=== PATIENT | male | born 1955 | race African-American/Black ===

== ENCOUNTER 2021-12-31 22:16 | Emergency (ER) | payer OTHER ==
[2021-12-31 22:23] VITALS: BP 110/66; PULSE 82; TEMP 98.3; BMI 18.3
== END 2022-01-01 04:44 | disposition home or self-care (01) ==
LOC: JER 22:16
DX: F10.129 Alcohol abuse with intoxication, unspecified (principal)
CPT/HCPCS: 70450-TC; 72125-TC; 99284-25

== ENCOUNTER 2022-01-01 06:54 | Emergency (ER) | payer OTHER ==
[2022-01-01 09:09] LABS: BASO % 0.9 % (0-2.0); EOS % 0.7 % (0-4.5); HEMATOCRIT 39.6 % (35.4-49); HEMOGLOBIN 13.8 GM/dL (11.7-16.9); LYMPH % 23.4 % (8-40); MCH 32.9 pg (25.7-33.7); MCHC 34.8 g/dl (32.0-35.9); MEAN CELL VOLUME 94.7 fl (80-96); MEAN PLT VOLUME 7.2 fl (7.5-11.1); PLATELET COUNT 387 10^3/uL (134-434); RBC 4.18 M/mm3 (4.00-5.60); RDW 13.3 % (11.9-15.9); WHITE BLOOD COUNT 6.5 K/mm3 (4.0-10.0)
[2022-01-01 09:32] LABS: ALBUMIN 3.8 g/dl (3.4-5.0); BLOOD UREA NITROGEN 9.2 mg/dL (7-18); MAGNESIUM 2.3 mg/dL (1.8-2.4)
[2022-01-01 09:35] LABS: CREATININE 0.9 mg/dL (0.55-1.3)
[2022-01-01 09:37] LABS: BILIRUBIN,TOTAL 0.6 mg/dL (0.2-1); TOT PROT 7.1 g/dl (6.4-8.2)
[2022-01-01 10:24] VITALS: BP 155/81; PULSE 74; TEMP 97.5; BMI 17.6
[2022-01-01] MEDS ORDERED: LOSARTAN POTASSIUM 50 MG TABLET PO ONE (13:11)
[2022-01-01] MEDS ORDERED: amLODIPine BESYLATE 10 MG TABLET (FP) PO ONE (13:11)
[2022-01-01] MEDS ORDERED: clonazePAM 2 MG TABLET PO ONE (13:12)
[2022-01-01] MEDS ORDERED: LOSARTAN POTASSIUM 50 MG TABLET ONE (13:16)
[2022-01-01] MEDS ORDERED: clonazePAM 2 MG TABLET ONE (13:16)
[2022-01-01] MEDS ORDERED: amLODIPine BESYLATE 10 MG TABLET (FP) ONE (13:16)
== END 2022-01-01 14:00 | disposition home or self-care (01) ==
LOC: JER 06:54
DX: R07.9 Chest pain, unspecified (principal)
CPT/HCPCS: 71046-TC-FY; 80053; 83735; 84443; 84484; 85025; 93005; 93010; 99285-25; C9803-CS; U0003; U0005

== ENCOUNTER 2022-01-06 01:36 | Emergency (ER) | payer OTHER ==
[2022-01-06 01:59] VITALS: BP 145/86; PULSE 95; RESP 18; TEMP 98.1; BMI 47.2
== END 2022-01-06 06:40 | disposition home or self-care (01) ==
LOC: JER 01:36
DX: Z76.0 Encounter for issue of repeat prescription (principal)
CPT/HCPCS: 99283-25

== ENCOUNTER 2022-01-07 21:33 | Emergency (ER) | payer OTHER ==
[2022-01-07 21:46] VITALS: BP 133/70; PULSE 90; RESP 20; TEMP 98.3; BMI 18.1
== END 2022-01-07 23:29 | disposition home or self-care (01) ==
LOC: JER 21:33
DX: Z00.00 Encounter for general adult medical examination without abnormal findings (principal)
CPT/HCPCS: 93005; 93010; 99283-25

== ENCOUNTER 2022-03-24 11:57 | Emergency (ER) | payer OTHER ==
[2022-03-24 12:13] VITALS: BP 160/70; PULSE 110; RESP 18; TEMP 97.1; BMI 18.1
[2022-03-24] MEDS ORDERED: DIPHTH,PERTUSS(ACELL),TET 0.5 ML DISP.SYRIN IM ONE ×2 (12:43→14:07)
[2022-03-24] MEDS ORDERED: ACETAMINOPHEN 500 MG TABLET (FP) PO ONE (12:43)
[2022-03-24] MEDS ORDERED: ACETAMINOPHEN 500 MG TABLET (FP) ONE (14:07)
== END 2022-03-24 17:00 | disposition home or self-care (01) ==
LOC: JER 11:57
PROC: 0HQ1XZZ Repair Face Skin, External Approach (ICD-10-PCS; principal; 2022-03-24)
PROC: 3E0234Z Introduction of Serum, Toxoid and Vaccine into Muscle, Percutaneous Approach (ICD-10-PCS; 2022-03-24)
DX: S06.0X9A Concussion with loss of consciousness of unspecified duration, initial encounter (principal); S01.411A Laceration without foreign body of right cheek and temporomandibular area, initial encounter; R51.9 Headache, unspecified; Y04.0XXA Assault by unarmed brawl or fight, initial encounter
CPT/HCPCS: 12002-25; 70450-TC; 70486-TC; 72125-TC; 90471; 90715; 99285-25

== ENCOUNTER 2022-04-04 22:37 | Inpatient (IN) | payer OTHER ==
[2022-04-04 23:35] LABS: BASO % 0.9 % (0-2.0); EOS % 1.9 % (0-4.5); HEMATOCRIT 37.5 % (35.4-49); HEMOGLOBIN 12.8 GM/dL (11.7-16.9); LYMPH % 24.3 % (8-40); MCH 32.8 pg (25.7-33.7); MCHC 34.1 g/dl (32.0-35.9); MEAN CELL VOLUME 96.4 fl (80-96); MEAN PLT VOLUME 6.6 fl (7.5-11.1); MONO % 5.9 % (3.8-10.2); PLATELET COUNT 371 10^3/uL (134-434); RBC 3.89 M/mm3 (4.00-5.60); RDW 13.6 % (11.9-15.9); WHITE BLOOD COUNT 7.2 K/mm3 (4.0-10.0)
[2022-04-04] MEDS ORDERED: CLOPIDOGREL BISULFATE 300 MG TABLET PO ONE (23:37)
[2022-04-04] MEDS ORDERED: CLOPIDOGREL BISULFATE 300 MG TABLET ONE (23:43)
[2022-04-04 23:44] LABS: INR 0.97 (0.83-1.09); PROTHROMBIN TIME (PATIENT) 11.1 SEC (9.7-13.0)
[2022-04-04] MEDS ORDERED: CLOPIDOGREL BISULFATE 75 MG TABLET (FP) PO ONE (23:44)
[2022-04-04 23:47] LABS: ACTIVATED PTT 27.5 SECONDS (25.2-36.5)
[2022-04-04] MEDS ORDERED: CLOPIDOGREL BISULFATE 75 MG TABLET (FP) ONE (23:47)
[2022-04-04 23:54] LABS: CALCIUM 9.1 mg/dL (8.5-10.1)
[2022-04-04 23:56] LABS: BLOOD UREA NITROGEN 11.9 mg/dL (7-18)
[2022-04-04 23:57] LABS: ALBUMIN 3.9 g/dl (3.4-5.0)
[2022-04-04 23:59] LABS: TOT PROT 7.2 g/dl (6.4-8.2)
[2022-04-05 00:01] LABS: BILIRUBIN,TOTAL 0.2 mg/dL (0.2-1)
[2022-04-05 07:48] LABS: EOS % 4.2 % (0-4.5); HEMATOCRIT 38.1 % (35.4-49); HEMOGLOBIN 12.6 GM/dL (11.7-16.9); MCH 32.1 pg (25.7-33.7); MCHC 33.1 g/dl (32.0-35.9); MEAN CELL VOLUME 96.9 fl (80-96); MEAN PLT VOLUME 7.4 fl (7.5-11.1); MONO % 9.4 % (3.8-10.2); NEUT % 53.4 % (42.8-82.8); PLATELET COUNT 352 10^3/uL (134-434); RBC 3.93 M/mm3 (4.00-5.60); RDW 13.7 % (11.9-15.9); WHITE BLOOD COUNT 7.4 K/mm3 (4.0-10.0)
[2022-04-05 07:57] LABS: ALBUMIN 3.4 g/dl (3.4-5.0); BLOOD UREA NITROGEN 11.6 mg/dL (7-18); CALCIUM 8.9 mg/dL (8.5-10.1)
[2022-04-05 08:01] LABS: CREATININE 0.9 mg/dL (0.55-1.3)
[2022-04-05 08:03] LABS: BILIRUBIN,TOTAL 0.4 mg/dL (0.2-1); TOT PROT 6.4 g/dl (6.4-8.2)
[2022-04-05] MEDS ORDERED: CLOPIDOGREL BISULFATE 75 MG TABLET (FP) ONE (09:46)
[2022-04-05] MEDS ORDERED: amLODIPine BESYLATE 10 MG TABLET (FP) ONE (09:46)
[2022-04-05] MEDS ORDERED: LOSARTAN POTASSIUM 50 MG TABLET ONE (09:46)
[2022-04-05] MEDS ORDERED: ENOXAPARIN NA (PORCINE) 30 MG/0.3 ML DISP.SYRIN SQ ONE (09:47)
[2022-04-05] MEDS: ENOXAPARIN NA (PORCINE) 30 MG/0.3 ML DISP.SYRIN SQ SCH (10:02)
[2022-04-05] MEDS: LOSARTAN POTASSIUM 50 MG TABLET PO SCH (10:02)
[2022-04-05] MEDS: CLOPIDOGREL BISULFATE 75 MG TABLET (FP) PO SCH (10:03)
[2022-04-05] MEDS: amLODIPine BESYLATE 10 MG TABLET (FP) PO SCH (10:03)
[2022-04-05] MEDS: ROSUVASTATIN CA 20 MG TABLET PO SCH (21:51)
[2022-04-05] MEDS ORDERED: ROSUVASTATIN CA 40 MG TABLET PO SCH (22:00)
[2022-04-06 03:29] LABS: URINE BARBITURATES NEGATIVE (NEGATIVE)
[2022-04-06 03:30] LABS: METHADONE, UR NEGATIVE (NEGATIVE); PHENCYCLIDINE,URINE NEGATIVE (NEGATIVE); URINE BENZODIAZEPINES NEGATIVE (NEGATIVE)
[2022-04-06 04:02] LABS: COCAINE, UR POSITIVE (NEGATIVE); OPIATES, URI POSITIVE (NEGATIVE); URINE AMPHETAMINES NEGATIVE (NEGATIVE)
[2022-04-06 08:34] LABS: BASO % 0.7 % (0-2.0); EOS % 5.2 % (0-4.5); HEMATOCRIT 40.2 % (35.4-49); HEMOGLOBIN 13.6 GM/dL (11.7-16.9); LYMPH % 20.2 % (8-40); MCH 32.4 pg (25.7-33.7); MCHC 33.8 g/dl (32.0-35.9); MEAN CELL VOLUME 96.1 fl (80-96); MEAN PLT VOLUME 7.2 fl (7.5-11.1); MONO % 10.8 % (3.8-10.2); NEUT % 63.1 % (42.8-82.8); PLATELET COUNT 367 10^3/uL (134-434); RBC 4.19 M/mm3 (4.00-5.60); RDW 13.6 % (11.9-15.9); WHITE BLOOD COUNT 6.4 K/mm3 (4.0-10.0)
[2022-04-06 08:56] LABS: ALBUMIN 3.6 g/dl (3.4-5.0); BLOOD UREA NITROGEN 10.8 mg/dL (7-18); CALCIUM 9.1 mg/dL (8.5-10.1)
[2022-04-06 09:01] LABS: BILIRUBIN,TOTAL 0.5 mg/dL (0.2-1); TOT PROT 6.9 g/dl (6.4-8.2)
[2022-04-06] MEDS: LOSARTAN POTASSIUM 50 MG TABLET PO SCH (09:20)
[2022-04-06] MEDS: CLOPIDOGREL BISULFATE 75 MG TABLET (FP) PO SCH (09:20)
[2022-04-06] MEDS: ENOXAPARIN NA (PORCINE) 30 MG/0.3 ML DISP.SYRIN SQ SCH (09:20)
[2022-04-06] MEDS: amLODIPine BESYLATE 10 MG TABLET (FP) PO SCH (09:21)
[2022-04-06] MEDS: POLYETHYLENE GLYCOL (HEALTHYLAX) 3350 17 GM PACKET PO SCH ×2 (13:49→21:23)
[2022-04-06] MEDS: DOCUSATE SODIUM 100 MG CAPSULE (FP) PO SCH ×2 (15:40→21:22)
[2022-04-06] MEDS ORDERED: QUEtiapine FUMARATE 100 MG TABLET (FP) PO ONE (20:16)
[2022-04-06] MEDS ORDERED: clonazePAM 0.5 MG TABLET PO ONE (20:16)
[2022-04-06] MEDS: ROSUVASTATIN CA 20 MG TABLET PO SCH (21:22)
[2022-04-07] MEDS: DOCUSATE SODIUM 100 MG CAPSULE (FP) PO SCH ×3 (05:14→22:45)
[2022-04-07 08:36] LABS: BASO % 0.6 % (0-2.0); EOS % 8.1 % (0-4.5); HEMATOCRIT 41.5 % (35.4-49); HEMOGLOBIN 14.2 GM/dL (11.7-16.9); LYMPH % 25.6 % (8-40); MCH 32.8 pg (25.7-33.7); MCHC 34.1 g/dl (32.0-35.9); MEAN CELL VOLUME 96.2 fl (80-96); MEAN PLT VOLUME 7.3 fl (7.5-11.1); MONO % 11.3 % (3.8-10.2); NEUT % 54.4 % (42.8-82.8); PLATELET COUNT 375 10^3/uL (134-434); RBC 4.31 M/mm3 (4.00-5.60); RDW 13.4 % (11.9-15.9); WHITE BLOOD COUNT 7.1 K/mm3 (4.0-10.0)
[2022-04-07 08:56] LABS: CALCIUM 9.1 mg/dL (8.5-10.1)
[2022-04-07 08:57] LABS: ALBUMIN 3.5 g/dl (3.4-5.0); BLOOD UREA NITROGEN 10.2 mg/dL (7-18)
[2022-04-07 08:59] LABS: CREATININE 1.1 mg/dL (0.55-1.3)
[2022-04-07 09:01] LABS: BILIRUBIN,TOTAL 0.4 mg/dL (0.2-1); TOT PROT 6.8 g/dl (6.4-8.2)
[2022-04-07] MEDS ORDERED: REGADENOSON 0.4 MG/5 ML PRE-FILLED SYRINGE IVPUSH ONE ×2 (09:54→10:30)
[2022-04-07] MEDS: LOSARTAN POTASSIUM 50 MG TABLET PO SCH (13:45)
[2022-04-07] MEDS: CLOPIDOGREL BISULFATE 75 MG TABLET (FP) PO SCH (13:46)
[2022-04-07] MEDS: amLODIPine BESYLATE 10 MG TABLET (FP) PO SCH (13:46)
[2022-04-07] MEDS: POLYETHYLENE GLYCOL (HEALTHYLAX) 3350 17 GM PACKET PO SCH ×2 (13:47→21:09)
[2022-04-07] MEDS: ENOXAPARIN NA (PORCINE) 30 MG/0.3 ML DISP.SYRIN SQ SCH (13:47)
[2022-04-07] MEDS ORDERED: ASPIRIN COATED 81 MG TABLET.EC PO SCH (16:30)
[2022-04-07] MEDS: LIDOCAINE 5% TOPICAL PATCH TP SCH (17:03)
[2022-04-07] MEDS: oxyCODONE HCL 5 MG TABLET PO PRN ×2 (17:08→22:53)
[2022-04-07] MEDS: ACETAMINOPHEN 325 MG TABLET (FP) PO PRN (17:11)
[2022-04-07] MEDS: ROSUVASTATIN CA 20 MG TABLET PO SCH (21:10)
[2022-04-07] MEDS ORDERED: QUEtiapine FUMARATE 100 MG TABLET (FP) PO ONE (22:38)
[2022-04-07] MEDS: LIDOCAINE PATCH REMOVAL MC SCH (22:57)
[2022-04-07 23:21] VITALS: BMI 18.9
[2022-04-08] MEDS: DOCUSATE SODIUM 100 MG CAPSULE (FP) PO SCH ×3 (06:12→21:12)
[2022-04-08] MEDS: oxyCODONE HCL 5 MG TABLET PO PRN ×3 (06:23→18:37)
[2022-04-08] MEDS: ACETAMINOPHEN 325 MG TABLET (FP) PO PRN ×3 (06:24→18:38)
[2022-04-08] MEDS ORDERED: NITROGLYCERIN SUBLINGUAL 1/150 0.4 MG TAB SL ONE (07:14)
[2022-04-08] MEDS ORDERED: NITROGLYCERIN SUBLINGUAL 1/150 0.4 MG TAB ONE (07:17)
[2022-04-08] MEDS: ENOXAPARIN NA (PORCINE) 30 MG/0.3 ML DISP.SYRIN SQ SCH (09:43)
[2022-04-08] MEDS: LOSARTAN POTASSIUM 50 MG TABLET PO SCH (09:43)
[2022-04-08] MEDS: amLODIPine BESYLATE 10 MG TABLET (FP) PO SCH (09:43)
[2022-04-08] MEDS: POLYETHYLENE GLYCOL (HEALTHYLAX) 3350 17 GM PACKET PO SCH ×2 (09:44→21:12)
[2022-04-08] MEDS: LIDOCAINE 5% TOPICAL PATCH TP SCH (09:45)
[2022-04-08] MEDS ORDERED: TICAGRELOR 60 MG TABLET PO SCH (10:00)
[2022-04-08] MEDS ORDERED: TICAGRELOR 90 MG TABLET PO SCH (10:00)
[2022-04-08] MEDS: QUEtiapine FUMARATE 100 MG TABLET (FP) PO SCH (21:12)
[2022-04-08] MEDS: ROSUVASTATIN CA 20 MG TABLET PO SCH (21:13)
[2022-04-08] MEDS: LIDOCAINE PATCH REMOVAL MC SCH (21:17)
[2022-04-08 21:43] LABS: N-TERMINAL BNP 67.4 pg/ml (5-125)
[2022-04-08 22:15] LABS: CALCIUM 9.5 mg/dL (8.5-10.1)
[2022-04-08 22:16] LABS: BLOOD UREA NITROGEN 23.7 mg/dL (7-18)
[2022-04-08 22:19] LABS: CREATININE 1.1 mg/dL (0.55-1.3)
[2022-04-08] MEDS: DEXTROSE 5%-0.45% SALINE 1,000 ML IV SCH (23:41)
[2022-04-09] MEDS: oxyCODONE HCL 5 MG TABLET PO PRN ×2 (03:49→20:00)
[2022-04-09] MEDS: ACETAMINOPHEN 325 MG TABLET (FP) PO PRN (03:50)
[2022-04-09] MEDS: DOCUSATE SODIUM 100 MG CAPSULE (FP) PO SCH ×3 (06:47→21:06)
[2022-04-09 09:31] VITALS: RESP 18
[2022-04-09] MEDS: LIDOCAINE 5% TOPICAL PATCH TP SCH (10:51)
[2022-04-09] MEDS: ENOXAPARIN NA (PORCINE) 30 MG/0.3 ML DISP.SYRIN SQ SCH (10:59)
[2022-04-09] MEDS: amLODIPine BESYLATE 10 MG TABLET (FP) PO SCH (11:00)
[2022-04-09] MEDS: CLOPIDOGREL BISULFATE 75 MG TABLET (FP) PO SCH (11:00)
[2022-04-09] MEDS: LOSARTAN POTASSIUM 50 MG TABLET PO SCH (11:00)
[2022-04-09] MEDS: POLYETHYLENE GLYCOL (HEALTHYLAX) 3350 17 GM PACKET PO SCH ×2 (11:00→21:06)
[2022-04-09] MEDS: clonazePAM 0.5 MG TABLET PO PRN (15:06)
[2022-04-09] MEDS: QUEtiapine FUMARATE 100 MG TABLET (FP) PO SCH (21:05)
[2022-04-09] MEDS: ROSUVASTATIN CA 20 MG TABLET PO SCH (21:05)
[2022-04-09] MEDS: LIDOCAINE PATCH REMOVAL MC SCH (21:09)
[2022-04-10] MEDS: oxyCODONE HCL 5 MG TABLET PO PRN ×2 (02:00→08:36)
[2022-04-10] MEDS: DEXTROSE 5%-0.45% SALINE 1,000 ML IV SCH (02:02)
[2022-04-10] MEDS: clonazePAM 0.5 MG TABLET PO PRN (02:06)
[2022-04-10] MEDS: ACETAMINOPHEN 325 MG TABLET (FP) PO PRN (05:50)
[2022-04-10] MEDS: DOCUSATE SODIUM 100 MG CAPSULE (FP) PO SCH (05:50)
[2022-04-10 09:02] VITALS: BP 125/89; PULSE 97; TEMP 97.9
[2022-04-10] MEDS: LOSARTAN POTASSIUM 50 MG TABLET PO SCH (10:40)
[2022-04-10] MEDS: ENOXAPARIN NA (PORCINE) 30 MG/0.3 ML DISP.SYRIN SQ SCH (10:40)
[2022-04-10] MEDS: amLODIPine BESYLATE 10 MG TABLET (FP) PO SCH (10:40)
[2022-04-10] MEDS: LIDOCAINE 5% TOPICAL PATCH TP SCH (10:40)
[2022-04-10] MEDS: CLOPIDOGREL BISULFATE 75 MG TABLET (FP) PO SCH (10:41)
[2022-04-10] MEDS: POLYETHYLENE GLYCOL (HEALTHYLAX) 3350 17 GM PACKET PO SCH (10:41)
== END 2022-04-10 13:58 | disposition home or self-care (01) | DRG 190 ==
LOC: JER 22:37 → JERBED 04-05 00:51 → J4S 04-05 18:32 → OBSVTOIN 04-08 09:55
PROVIDERS: ADMIT Internal Medicine; ATTEND Internal Medicine
DX: I21.4 Non-ST elevation (NSTEMI) myocardial infarction (principal); I10 Essential (primary) hypertension; G89.29 Other chronic pain; Z86.73 Personal history of transient ischemic attack (TIA), and cerebral infarction without residual deficits; R07.9 Chest pain, unspecified; M87.052 Idiopathic aseptic necrosis of left femur; F20.9 Schizophrenia, unspecified; F17.200 Nicotine dependence, unspecified, uncomplicated; M25.562 Pain in left knee; M25.561 Pain in right knee; E78.5 Hyperlipidemia, unspecified; F41.9 Anxiety disorder, unspecified; F32.A Depression, unspecified; M54.50 Low back pain, unspecified; M87.051 Idiopathic aseptic necrosis of right femur; F19.10 Other psychoactive substance abuse, uncomplicated
CPT/HCPCS: 0241U-QW; 36415; 71046-TC-FY; 71275-TC; 74160-TC; 74177-TC; 78452-TC; 80048; 80053; 80061; 80307; 82962; 83036; 83880; 84439; 84443; 84484; 85025; 85610; 85730; 86682; 93005; 93010; 93017; 93306-TC; 99285-25; A9502; G0378; J2785; Q9967

== ENCOUNTER 2022-05-11 18:49 | Emergency (ER) | payer OTHER ==
[2022-05-11 20:36] VITALS: BP 142/85; PULSE 83; RESP 18; TEMP 98.1; BMI 24.3
[2022-05-11] MEDS ORDERED: ACETAMINOPHEN 325 MG TABLET (FP) PO ONE (23:48)
[2022-05-12] MEDS ORDERED: LIDOCAINE 5% TOPICAL PATCH TP ONE (00:42)
[2022-05-12] MEDS ORDERED: LIDOCAINE 5% TOPICAL PATCH ONE (01:53)
[2022-05-12] MEDS ORDERED: LIDOCAINE PATCH REMOVAL MC SCH (22:00)
== END 2022-05-12 08:37 | disposition home or self-care (01) ==
LOC: JER 18:49 → JERFT 18:49
DX: M54.50 Low back pain, unspecified (principal)
CPT/HCPCS: 99283-25

== ENCOUNTER 2022-05-26 20:38 | Observation (INO) | payer OTHER ==
[2022-05-26 21:23] VITALS: BMI 18.8
[2022-05-27 00:34] LABS: HEMOGLOBIN 10.6 GM/dL (11.7-16.9); MCH 32.3 pg (25.7-33.7); MCHC 34.4 g/dl (32.0-35.9); MEAN CELL VOLUME 93.9 fl (80-96); MEAN PLT VOLUME 6.7 fl (7.5-11.1); PLATELET COUNT 380 10^3/uL (134-434); RDW 13.8 % (11.9-15.9); WHITE BLOOD COUNT 6.5 K/mm3 (4.0-10.0)
[2022-05-27 00:55] LABS: CALCIUM 9.1 mg/dL (8.5-10.1)
[2022-05-27 00:56] LABS: ALBUMIN 3.7 g/dl (3.4-5.0); BLOOD UREA NITROGEN 9.3 mg/dL (7-18); MAGNESIUM 1.9 mg/dL (1.8-2.4)
[2022-05-27 01:01] LABS: BILIRUBIN,TOTAL 0.2 mg/dL (0.2-1); TOT PROT 6.9 g/dl (6.4-8.2)
[2022-05-27 01:04] LABS: N-TERMINAL BNP 172.5 pg/ml (5-125)
[2022-05-27 01:25] LABS: INR 1.04 (0.83-1.09)
[2022-05-27 01:28] LABS: ACTIVATED PTT 26.7 SECONDS (25.2-36.5)
[2022-05-27] MEDS ORDERED: OSELTAMIVIR PHOSPHATE 75 MG CAPSULE PO SCH (03:07)
[2022-05-27] MEDS ORDERED: OSELTAMIVIR PHOSPHATE 30 MG CAPSULE PO SCH (04:00)
[2022-05-27 05:33] LABS: ANISOCYTOSIS 3+; MACROCYTOSIS 0; ROULEAU 1+
[2022-05-27] MEDS ORDERED: INSULIN SLIDING SCALE (NOVOLOG) 1 VIAL SQ SCH (07:00)
[2022-05-27 07:06] VITALS: BP 164/78; PULSE 79; RESP 20; TEMP 99.7
[2022-05-27] MEDS ORDERED: amLODIPine BESYLATE 10 MG TABLET (FP) ONE (09:20)
[2022-05-27] MEDS ORDERED: CLOPIDOGREL BISULFATE 75 MG TABLET (FP) ONE (09:21)
[2022-05-27] MEDS ORDERED: amLODIPine BESYLATE 10 MG TABLET (FP) PO SCH (10:00)
[2022-05-27] MEDS ORDERED: ENOXAPARIN NA (PORCINE) 40 MG/0.4 ML DISP.SYRIN SQ SCH (10:00)
[2022-05-27] MEDS ORDERED: CLOPIDOGREL BISULFATE 75 MG TABLET (FP) PO SCH (10:00)
== END 2022-05-27 12:11 | disposition left against medical advice (07) ==
LOC: JER 20:38 → JERBED 05-27 00:08
PROVIDERS: ADMIT Internal Medicine; ATTEND Internal Medicine
DX: J09.X2 Influenza due to identified novel influenza A virus with other respiratory manifestations (principal); E11.9 Type 2 diabetes mellitus without complications; F31.9 Bipolar disorder, unspecified; E78.5 Hyperlipidemia, unspecified; I11.9 Hypertensive heart disease without heart failure; G89.29 Other chronic pain; I25.10 Atherosclerotic heart disease of native coronary artery without angina pectoris; Z95.5 Presence of coronary angioplasty implant and graft; Z86.73 Personal history of transient ischemic attack (TIA), and cerebral infarction without residual deficits; Z29.8 Encounter for other specified prophylactic measures; Z88.8 Allergy status to other drugs, medicaments and biological substances
CPT/HCPCS: 0241U-QW; 36415; 71045-TC-FY; 80053; 83735; 83880; 84484; 85025; 85610; 85730; 93005; 93010; 99285-25; G0378

== ENCOUNTER 2022-08-02 00:57 | Emergency (ER) | payer OTHER ==
[2022-08-02 01:03] VITALS: RESP 18; BMI 18.8
[2022-08-02] MEDS ORDERED: diphenhydrAMINE HCL 25 MG CAPSULE (FP) PO ONE ×2 (01:28→01:53)
[2022-08-02] MEDS ORDERED: morphine CARPU-JECT 2 MG/1 ML DISP.SYRIN IVPUSH ONE (01:31)
[2022-08-02] MEDS ORDERED: morphine SULFATE 4 MG/ML VIAL ONE (01:53)
[2022-08-02 02:14] LABS: BASO % 0.7 % (0-2.0); HEMOGLOBIN 13.1 GM/dL (11.7-16.9); LYMPH % 36.8 % (8-40); MCH 32.3 pg (25.7-33.7); MCHC 34.5 g/dl (32.0-35.9); MEAN CELL VOLUME 93.7 fl (80-96); MEAN PLT VOLUME 7.1 fl (7.5-11.1); MONO % 11.1 % (3.8-10.2); NEUT % 45.4 % (42.8-82.8); PLATELET COUNT 328 10^3/uL (134-434); RBC 4.05 M/mm3 (4.00-5.60); RDW 13.7 % (11.9-15.9); WHITE BLOOD COUNT 7.1 K/mm3 (4.0-10.0)
[2022-08-02 02:20] LABS: INR 0.96 (0.83-1.09); PROTHROMBIN TIME (PATIENT) 11.1 SEC (9.7-13.0)
[2022-08-02 02:23] LABS: ACTIVATED PTT 30.4 SECONDS (25.2-36.5)
[2022-08-02 02:34] LABS: ALBUMIN 3.7 g/dl (3.4-5.0); CALCIUM 8.8 mg/dL (8.5-10.1)
[2022-08-02 02:37] LABS: CREATININE 1.2 mg/dL (0.55-1.3)
[2022-08-02 02:39] LABS: BILIRUBIN,TOTAL 0.2 mg/dL (0.2-1); TOT PROT 6.9 g/dl (6.4-8.2)
[2022-08-02 06:49] VITALS: BP 173/94; PULSE 75; TEMP 97.9
== END 2022-08-02 07:06 | disposition home or self-care (01) ==
LOC: JER 00:57
PROC: 3E033GC Introduction of Other Therapeutic Substance into Peripheral Vein, Percutaneous Approach (ICD-10-PCS; principal; 2022-08-02)
DX: R07.9 Chest pain, unspecified (principal); K46.9 Unspecified abdominal hernia without obstruction or gangrene
CPT/HCPCS: 0241U-QW; 36415; 71045-TC-FY; 80053; 83605; 84484; 85025; 85610; 85730; 86850; 86900; 86901; 93005; 93010; 99285-25

== ENCOUNTER 2022-08-11 19:34 | Observation (INO) | payer OTHER ==
[2022-08-11 23:48] LABS: BASO % 0.6 % (0-2.0); EOS % 4.3 % (0-4.5); HEMATOCRIT 36.9 % (35.4-49); HEMOGLOBIN 12.4 GM/dL (11.7-16.9); LYMPH % 20.5 % (8-40); MCH 31.1 pg (25.7-33.7); MCHC 33.6 g/dl (32.0-35.9); MEAN CELL VOLUME 92.7 fl (80-96); MONO % 8.3 % (3.8-10.2); NEUT % 66.3 % (42.8-82.8); PLATELET COUNT 350 10^3/uL (134-434); RBC 3.98 M/mm3 (4.00-5.60); RDW 13.7 % (11.9-15.9); WHITE BLOOD COUNT 9.6 K/mm3 (4.0-10.0)
[2022-08-11 23:52] LABS: INR 0.97 (0.83-1.09); PROTHROMBIN TIME (PATIENT) 11.2 SEC (9.7-13.0)
[2022-08-12 00:11] LABS: CALCIUM 9.1 mg/dL (8.5-10.1)
[2022-08-12 00:12] LABS: ALBUMIN 3.5 g/dl (3.4-5.0); BLOOD UREA NITROGEN 13.1 mg/dL (7-18)
[2022-08-12 00:15] LABS: CREATININE 1.2 mg/dL (0.55-1.3)
[2022-08-12 00:17] LABS: BILIRUBIN,TOTAL 0.4 mg/dL (0.2-1); TOT PROT 6.8 g/dl (6.4-8.2)
[2022-08-12] MEDS ORDERED: BACLOFEN 10 MG TABLET (FP) PO SCH (06:00)
[2022-08-12] MEDS ORDERED: LOSARTAN POTASSIUM 50 MG TABLET PO SCH (10:00)
[2022-08-12] MEDS ORDERED: CLOPIDOGREL BISULFATE 75 MG TABLET (FP) PO SCH (10:00)
[2022-08-12] MEDS ORDERED: ENOXAPARIN NA (PORCINE) 40 MG/0.4 ML DISP.SYRIN SQ SCH (10:00)
[2022-08-12] MEDS ORDERED: amLODIPine BESYLATE 10 MG TABLET (FP) PO SCH (10:00)
[2022-08-12] MEDS ORDERED: CLONAZEPAM PO SCH (10:00)
[2022-08-12] MEDS ORDERED: clonazePAM 2 MG TABLET PO SCH (10:00)
[2022-08-12] MEDS: INSULIN SLIDING SCALE (NOVOLOG) 1 VIAL SQ SCH ×2 (12:39→17:13)
[2022-08-12 14:19] LABS: BASO % 0.9 % (0-2.0); EOS % 6.8 % (0-4.5); HEMATOCRIT 38.1 % (35.4-49); HEMOGLOBIN 13.1 GM/dL (11.7-16.9); LYMPH % 28.8 % (8-40); MCH 32.1 pg (25.7-33.7); MCHC 34.3 g/dl (32.0-35.9); MEAN CELL VOLUME 93.8 fl (80-96); MEAN PLT VOLUME 7.3 fl (7.5-11.1); NEUT % 52.5 % (42.8-82.8); PLATELET COUNT 365 10^3/uL (134-434); RBC 4.06 M/mm3 (4.00-5.60); RDW 13.6 % (11.9-15.9)
[2022-08-12 14:47] VITALS: BMI 18.0
[2022-08-12 14:48] LABS: CALCIUM 9.2 mg/dL (8.5-10.1)
[2022-08-12 14:49] LABS: ALBUMIN 3.4 g/dl (3.4-5.0); BLOOD UREA NITROGEN 15.8 mg/dL (7-18); MAGNESIUM 2.1 mg/dL (1.8-2.4)
[2022-08-12 14:52] LABS: PHOSPHOROUS 3.6 mg/dL (2.5-4.9)
[2022-08-12 14:53] LABS: BILIRUBIN,TOTAL 0.3 mg/dL (0.2-1); TOT PROT 6.6 g/dl (6.4-8.2)
[2022-08-12 14:54] LABS: N-TERMINAL BNP 122.6 pg/ml (5-125)
[2022-08-12] MEDS ORDERED: diphenhydrAMINE HCL 25 MG CAPSULE (FP) PO ONE (15:47)
[2022-08-12] MEDS ORDERED: ATORVASTATIN CA 40 MG TABLET (FP) PO SCH (22:00)
[2022-08-12] MEDS ORDERED: LIDOCAINE PATCH REMOVAL MC SCH (22:00)
[2022-08-12] MEDS ORDERED: ATORVASTATIN CA 80 MG TABLET (FP) PO SCH (22:00)
[2022-08-12] MEDS ORDERED: CARVEDILOL 6.25 MG TABLET (FP) PO SCH (22:00)
[2022-08-12] MEDS ORDERED: QUEtiapine FUMARATE 100 MG TABLET (FP) PO SCH (22:00)
[2022-08-12] MEDS ORDERED: ACETAMINOPHEN 1000 MG/100 ML BAG IVPB PRN (23:24)
[2022-08-12] MEDS ORDERED: MELATONIN 1 MG TABLET PO PRN (23:30)
[2022-08-13 01:03] VITALS: RESP 20
[2022-08-13 06:32] VITALS: BP 139/73; PULSE 70; TEMP 98.7
[2022-08-13] MEDS ORDERED: ASPIRIN COATED 81 MG TABLET.EC PO SCH (10:00)
[2022-08-13] MEDS ORDERED: diphenhydrAMINE HCL 25 MG CAPSULE (FP) PO SCH (10:00)
[2022-08-13] MEDS ORDERED: LIDOCAINE 5% TOPICAL PATCH TP SCH (10:00)
== END 2022-08-13 08:33 | disposition left against medical advice (07) ==
LOC: JER 19:34 → JERFT 19:34 → JERBED 23:45 → J4W 08-12 06:37
PROVIDERS: ADMIT Internal Medicine; ATTEND Internal Medicine
PROC: 3E033NZ Introduction of Analgesics, Hypnotics, Sedatives into Peripheral Vein, Percutaneous Approach (ICD-10-PCS; principal; 2022-08-11)
PROC: 3E023GC Introduction of Other Therapeutic Substance into Muscle, Percutaneous Approach (ICD-10-PCS; 2022-08-11)
DX: I25.10 Atherosclerotic heart disease of native coronary artery without angina pectoris (principal); E78.00 Pure hypercholesterolemia, unspecified; I11.9 Hypertensive heart disease without heart failure; E11.9 Type 2 diabetes mellitus without complications; R07.9 Chest pain, unspecified; R01.1 Cardiac murmur, unspecified; R21 Rash and other nonspecific skin eruption; F31.9 Bipolar disorder, unspecified; F17.210 Nicotine dependence, cigarettes, uncomplicated; Z88.8 Allergy status to other drugs, medicaments and biological substances
CPT/HCPCS: 0241U-QW; 36415; 71046-TC-FY; 80053; 80061; 82962; 83036; 83735; 83880; 84100; 84484; 85025; 85610; 85730; 93005; 93010; 96372; 96374; 99285-25; G0378

== ENCOUNTER 2022-08-28 23:12 | Emergency (ER) | payer OTHER ==
[2022-08-28 23:26] VITALS: RESP 18; BMI 18.6
[2022-08-29 01:19] LABS: BASO % 0.9 % (0-2.0); EOS % 3.3 % (0-4.5); HEMATOCRIT 37.1 % (35.4-49); HEMOGLOBIN 12.4 GM/dL (11.7-16.9); LYMPH % 32.4 % (8-40); MCH 30.9 pg (25.7-33.7); MCHC 33.3 g/dl (32.0-35.9); MEAN CELL VOLUME 92.7 fl (80-96); MEAN PLT VOLUME 7.1 fl (7.5-11.1); MONO % 8.2 % (3.8-10.2); NEUT % 55.2 % (42.8-82.8); PLATELET COUNT 414 10^3/uL (134-434); RDW 13.2 % (11.9-15.9); WHITE BLOOD COUNT 6.6 K/mm3 (4.0-10.0)
[2022-08-29 01:25] LABS: INR 1.02 (0.83-1.09); PROTHROMBIN TIME (PATIENT) 11.8 SEC (9.7-13.0)
[2022-08-29 01:28] LABS: ACTIVATED PTT 30.4 SECONDS (25.2-36.5)
[2022-08-29 01:40] LABS: CALCIUM 9.1 mg/dL (8.5-10.1)
[2022-08-29 01:41] LABS: ALBUMIN 3.6 g/dl (3.4-5.0); BLOOD UREA NITROGEN 9.6 mg/dL (7-18)
[2022-08-29 01:44] LABS: CREATININE 0.9 mg/dL (0.55-1.3)
[2022-08-29 01:45] LABS: BILIRUBIN,TOTAL 0.2 mg/dL (0.2-1); TOT PROT 6.8 g/dl (6.4-8.2)
[2022-08-29 06:39] VITALS: BP 145/78; PULSE 67; TEMP 98.3
== END 2022-08-29 06:49 | disposition home or self-care (01) ==
LOC: JER 23:12
DX: R07.89 Other chest pain (principal); K40.90 Unilateral inguinal hernia, without obstruction or gangrene, not specified as recurrent
CPT/HCPCS: 36415; 71045-TC-FY; 80053; 84484; 85025; 85610; 85730; 93005; 93010; 99285-25

== ENCOUNTER 2022-09-14 23:12 | Emergency (ER) | payer OTHER ==
[2022-09-14 23:26] VITALS: BP 149/69; PULSE 85; RESP 18; TEMP 98; BMI 18.8
[2022-09-15] MEDS ORDERED: diphenhydrAMINE HCL 50 MG CAPSULE PO ONE (00:42)
[2022-09-15] MEDS ORDERED: predniSONE 20 MG TABLET (UD) PO ONE (00:42)
[2022-09-15] MEDS: ALBUTEROL SO4 2.5/IPRATROPIUM 0.5 INH SOL 3 ML VIAL.NEB. NEB SCH ×2 (00:45→01:00)
[2022-09-15] MEDS ORDERED: predniSONE 20 MG TABLET (UD) ONE (01:00)
[2022-09-15] MEDS ORDERED: diphenhydrAMINE HCL 25 MG CAPSULE (FP) PO ONE (01:00)
[2022-09-15 01:14] LABS: BASO % 0.7 % (0-2.0); EOS % 3.2 % (0-4.5); HEMATOCRIT 36.4 % (35.4-49); HEMOGLOBIN 12.9 GM/dL (11.7-16.9); LYMPH % 24.2 % (8-40); MCH 32.2 pg (25.7-33.7); MCHC 35.4 g/dl (32.0-35.9); MEAN CELL VOLUME 90.9 fl (80-96); MEAN PLT VOLUME 7.6 fl (7.5-11.1); MONO % 8.7 % (3.8-10.2); NEUT % 63.2 % (42.8-82.8); PLATELET COUNT 278 10^3/uL (134-434); RBC 4.01 M/mm3 (4.00-5.60); RDW 13.5 % (11.9-15.9); WHITE BLOOD COUNT 8.8 K/mm3 (4.0-10.0)
[2022-09-15 01:34] LABS: CALCIUM 9.3 mg/dL (8.5-10.1)
[2022-09-15 01:35] LABS: BLOOD UREA NITROGEN 14.7 mg/dL (7-18)
[2022-09-15 01:38] LABS: CREATININE 0.9 mg/dL (0.55-1.3)
[2022-09-15 01:39] LABS: BILIRUBIN,TOTAL 0.2 mg/dL (0.2-1); TOT PROT 7.5 g/dl (6.4-8.2)
== END 2022-09-15 05:36 | disposition home or self-care (01) ==
LOC: JER 23:12
PROC: 3E0F7GC Introduction of Other Therapeutic Substance into Respiratory Tract, Via Natural or Artificial Opening (ICD-10-PCS; principal; 2022-09-15)
DX: R07.2 Precordial pain (principal); R06.02 Shortness of breath; L29.9 Pruritus, unspecified; G89.29 Other chronic pain
CPT/HCPCS: 36415; 80053; 84484; 85025; 93005; 93010; 99284-25; 99285-25

== ENCOUNTER 2022-12-10 22:27 | Emergency (ER) | payer OTHER ==
[2022-12-10 22:41] VITALS: BP 132/69; PULSE 84; RESP 18; TEMP 97.6; BMI 18.4
[2022-12-10] MEDS ORDERED: ACETAMINOPHEN 1000 MG/100 ML BAG IVPB ONE (23:04)
[2022-12-10] MEDS ORDERED: ACETAMINOPHEN INJECTION 100 ML IVPB ONE (23:07)
[2022-12-10 23:31] LABS: BASO % 0.8 % (0-2.0); HEMATOCRIT 35.7 % (35.4-49); HEMOGLOBIN 12.3 GM/dL (11.7-16.9); LYMPH % 34.8 % (8-40); MCHC 34.4 g/dl (32.0-35.9); MEAN CELL VOLUME 93.2 fl (80-96); MEAN PLT VOLUME 7.3 fl (7.5-11.1); MONO % 9.9 % (3.8-10.2); NEUT % 48.5 % (42.8-82.8); PLATELET COUNT 247 10^3/uL (134-434); RBC 3.83 M/mm3 (4.00-5.60); RDW 14.4 % (11.9-15.9); WHITE BLOOD COUNT 6.2 K/mm3 (4.0-10.0)
[2022-12-11 00:47] LABS: POTASSIUM 3.7 mmol/L (3.5-5.1)
[2022-12-11 00:48] LABS: CALCIUM 9.2 mg/dL (8.5-10.1)
[2022-12-11 00:50] LABS: ALBUMIN 3.5 g/dl (3.4-5.0)
[2022-12-11 00:51] LABS: BLOOD UREA NITROGEN 9.9 mg/dL (7-18)
[2022-12-11 00:53] LABS: CREATININE 0.9 mg/dL (0.55-1.3)
[2022-12-11 00:55] LABS: BILIRUBIN,TOTAL 0.2 mg/dL (0.2-1); TOT PROT 6.4 g/dl (6.4-8.2)
== END 2022-12-11 04:16 | disposition home or self-care (01) ==
LOC: JER 22:27
PROC: 3E033NZ Introduction of Analgesics, Hypnotics, Sedatives into Peripheral Vein, Percutaneous Approach (ICD-10-PCS; principal; 2022-12-10)
DX: R10.32 Left lower quadrant pain (principal); K40.90 Unilateral inguinal hernia, without obstruction or gangrene, not specified as recurrent
CPT/HCPCS: 36415; 74177-TC; 80053; 85025; 99285-25

== ENCOUNTER 2023-01-08 00:29 | Observation (INO) | payer OTHER ==
[2023-01-08 01:03] VITALS: BMI 18.4
[2023-01-08] MEDS: ACETAMINOPHEN 1000 MG/100 ML BAG IVPB ONE ×2 (01:34→02:27)
[2023-01-08 01:47] LABS: BASO % 0.8 % (0-2.0); HEMATOCRIT 37.7 % (35.4-49); HEMOGLOBIN 12.8 GM/dL (11.7-16.9); LYMPH % 35.4 % (8-40); MCH 31.8 pg (25.7-33.7); MCHC 33.9 g/dl (32.0-35.9); MEAN CELL VOLUME 93.8 fl (80-96); MEAN PLT VOLUME 7.4 fl (7.5-11.1); MONO % 8.5 % (3.8-10.2); NEUT % 47.3 % (42.8-82.8); PLATELET COUNT 272 10^3/uL (134-434); RBC 4.02 M/mm3 (4.00-5.60); RDW 13.4 % (11.9-15.9)
[2023-01-08 01:53] LABS: INR 0.95 (0.83-1.09)
[2023-01-08 01:55] LABS: ACTIVATED PTT 27.2 SECONDS (25.2-36.5)
[2023-01-08 02:04] LABS: POTASSIUM 4.1 mmol/L (3.5-5.1)
[2023-01-08 02:07] LABS: ALBUMIN 3.7 g/dl (3.4-5.0); BLOOD UREA NITROGEN 23.5 mg/dL (7-18); CALCIUM 8.7 mg/dL (8.5-10.1)
[2023-01-08 02:10] LABS: CREATININE 1.1 mg/dL (0.55-1.3)
[2023-01-08 02:12] LABS: TOT PROT 6.7 g/dl (6.4-8.2)
[2023-01-08 02:15] LABS: N-TERMINAL BNP 254.2 pg/ml (5-125)
[2023-01-08] MEDS ORDERED: ACETAMINOPHEN INJECTION 100 ML IVPB ONE (02:21)
[2023-01-08 02:22] LABS: BILIRUBIN,TOTAL 0.1 mg/dL (0.2-1)
[2023-01-08] MEDS ORDERED: ENOXAPARIN NA (PORCINE) 40 MG/0.4 ML DISP.SYRIN SQ SCH (10:00)
[2023-01-08] MEDS ORDERED: hydrOXYzine PAMOATE 25 MG CAPSULE (FP) PO PRN (11:01)
[2023-01-08] MEDS ORDERED: ALBUTEROL SO4 HFA INHALER IH PRN (11:01)
[2023-01-08] MEDS ORDERED: TICAGRELOR 90 MG TABLET PO ONE (11:05)
[2023-01-08] MEDS: amLODIPine BESYLATE 10 MG TABLET (FP) PO SCH (11:13)
[2023-01-08] MEDS: LOSARTAN POTASSIUM 50 MG TABLET PO SCH (11:13)
[2023-01-08] MEDS ORDERED: PATIENT'S OWN MEDICATION (NON-FORMULARY) (Diclofenac Sodium 0.01 MG/MG Gel) TP SCH (11:15)
[2023-01-08] MEDS ORDERED: HEPARIN NA (PORCINE) 5,000 UNITS/ML 1ML VIAL SQ SCH (14:00)
[2023-01-08] MEDS: HEPARIN NA (PORCINE) 5,000 UNITS/ML 1ML VIAL SQ SCH ×2 (22:50→23:23)
[2023-01-08] MEDS: ATORVASTATIN CA 80 MG TABLET (FP) PO SCH (23:23)
[2023-01-09] MEDS: TICAGRELOR 90 MG TABLET PO SCH ×3 (00:18→21:39)
[2023-01-09] MEDS: ACETAMINOPHEN 325 MG TABLET (FP) PO PRN ×3 (04:53→21:45)
[2023-01-09] MEDS: LOSARTAN POTASSIUM 50 MG TABLET PO SCH (09:21)
[2023-01-09] MEDS: HEPARIN NA (PORCINE) 5,000 UNITS/ML 1ML VIAL SQ SCH ×2 (09:22→21:39)
[2023-01-09] MEDS: amLODIPine BESYLATE 10 MG TABLET (FP) PO SCH (09:22)
[2023-01-09 09:31] LABS: HEMATOCRIT 41.8 % (35.4-49); HEMOGLOBIN 14.2 GM/dL (11.7-16.9); MCH 31.6 pg (25.7-33.7); MCHC 33.9 g/dl (32.0-35.9); MEAN CELL VOLUME 93.3 fl (80-96); MEAN PLT VOLUME 7.7 fl (7.5-11.1); PLATELET COUNT 292 10^3/uL (134-434); RBC 4.48 M/mm3 (4.00-5.60); RDW 13.9 % (11.9-15.9)
[2023-01-09 10:35] LABS: POTASSIUM 4.3 mmol/L (3.5-5.1)
[2023-01-09 11:04] LABS: BLOOD UREA NITROGEN 17.6 mg/dL (7-18)
[2023-01-09 11:05] LABS: ALBUMIN 3.8 g/dl (3.4-5.0); CALCIUM 9.1 mg/dL (8.5-10.1); MAGNESIUM 2.1 mg/dL (1.8-2.4)
[2023-01-09 11:07] LABS: CREATININE 1.1 mg/dL (0.55-1.3)
[2023-01-09 11:08] LABS: BILIRUBIN,TOTAL 0.3 mg/dL (0.2-1)
[2023-01-09 11:09] LABS: TOT PROT 6.8 g/dl (6.4-8.2)
[2023-01-09] MEDS ORDERED: REGADENOSON 0.4 MG/5 ML PRE-FILLED SYRINGE IVPUSH ONE ×2 (11:46→15:00)
[2023-01-09] MEDS: oxyCODONE HCL 5 MG TABLET PO PRN ×2 (15:55→21:44)
[2023-01-09] MEDS: ATORVASTATIN CA 80 MG TABLET (FP) PO SCH (21:40)
[2023-01-09 23:42] VITALS: RESP 14
[2023-01-10] MEDS: oxyCODONE HCL 5 MG TABLET PO PRN ×2 (04:00→11:01)
[2023-01-10] MEDS: ACETAMINOPHEN 325 MG TABLET (FP) PO PRN (04:01)
[2023-01-10] MEDS: LOSARTAN POTASSIUM 50 MG TABLET PO SCH (09:01)
[2023-01-10] MEDS: HEPARIN NA (PORCINE) 5,000 UNITS/ML 1ML VIAL SQ SCH (09:02)
[2023-01-10] MEDS: TICAGRELOR 90 MG TABLET PO SCH (09:02)
[2023-01-10] MEDS: amLODIPine BESYLATE 10 MG TABLET (FP) PO SCH (09:02)
[2023-01-10 10:01] VITALS: TEMP 97.8
[2023-01-10 14:52] VITALS: BP 132/63; PULSE 61
== END 2023-01-10 15:35 | disposition home or self-care (01) ==
LOC: JER 00:29 → JERBED 04:53 → J4S 22:07
PROVIDERS: ADMIT Internal Medicine; ATTEND Internal Medicine
PROC: 3E033NZ Introduction of Analgesics, Hypnotics, Sedatives into Peripheral Vein, Percutaneous Approach (ICD-10-PCS; principal; 2023-01-08)
PROC: 3E023GC Introduction of Other Therapeutic Substance into Muscle, Percutaneous Approach (ICD-10-PCS; 2023-01-08)
PROC: 3E033GC Introduction of Other Therapeutic Substance into Peripheral Vein, Percutaneous Approach (ICD-10-PCS; 2023-01-08)
DX: I11.0 Hypertensive heart disease with heart failure (principal); I25.10 Atherosclerotic heart disease of native coronary artery without angina pectoris; J30.2 Other seasonal allergic rhinitis; E11.9 Type 2 diabetes mellitus without complications; E78.5 Hyperlipidemia, unspecified; Z95.5 Presence of coronary angioplasty implant and graft; Z87.891 Personal history of nicotine dependence; R79.9 Abnormal finding of blood chemistry, unspecified; Z88.8 Allergy status to other drugs, medicaments and biological substances; F12.10 Cannabis abuse, uncomplicated; F14.90 Cocaine use, unspecified, uncomplicated
CPT/HCPCS: 36415; 71045-TC-FY; 78452-TC; 80053; 80061; 82962; 83036; 83735; 83880; 84100; 84443; 84484; 85025; 85027; 85610; 85730; 93005; 93010; 93017; 93306-TC; 96372; 96374; 96375; 99285-25; A9502; G0378; J1644; J2785

== ENCOUNTER 2023-01-14 03:01 | Emergency (ER) | payer OTHER ==
[2023-01-14 03:06] VITALS: BP 136/72; PULSE 75; RESP 18; TEMP 97.9; BMI 18.4
== END 2023-01-14 03:56 | disposition home or self-care (01) ==
LOC: JER 03:01
DX: Z76.0 Encounter for issue of repeat prescription (principal)
CPT/HCPCS: 93005; 93010; 99283-25

== ENCOUNTER 2023-02-26 02:25 | Emergency (ER) | payer OTHER ==
[2023-02-26 02:29] VITALS: BP 141/72; PULSE 82; RESP 18; TEMP 97.8; BMI 18.4
[2023-02-26] MEDS ORDERED: ACETAMINOPHEN 500 MG TABLET (FP) PO ONE (03:32)
== END 2023-02-26 03:20 | disposition left against medical advice (07) ==
LOC: JER 02:25
DX: R07.9 Chest pain, unspecified (principal); M54.50 Low back pain, unspecified; K40.90 Unilateral inguinal hernia, without obstruction or gangrene, not specified as recurrent
CPT/HCPCS: 93005; 93010; 99283-25

== ENCOUNTER 2023-05-01 01:21 | Observation (INO) | payer OTHER ==
[2023-05-01] MEDS ORDERED: ACETAMINOPHEN 1000 MG/100 ML BAG IVPB ONE (02:22)
[2023-05-01] MEDS ORDERED: ACETAMINOPHEN INJECTION 100 ML IVPB ONE (02:27)
[2023-05-01 03:36] LABS: BASO % 0.5 % (0-2.0); EOS % 5.5 % (0-4.5); HEMATOCRIT 31.2 % (35.4-49); HEMOGLOBIN 10.9 GM/dL (11.7-16.9); LYMPH % 32.6 % (8-40); MCH 32.3 pg (25.7-33.7); MCHC 34.9 g/dl (32.0-35.9); MEAN CELL VOLUME 92.6 fl (80-96); MEAN PLT VOLUME 7.2 fl (7.5-11.1); MONO % 11.4 % (3.8-10.2); PLATELET COUNT 346 10^3/uL (134-434); RBC 3.37 M/mm3 (4.00-5.60); RDW 13.9 % (11.9-15.9); WHITE BLOOD COUNT 7.3 K/mm3 (4.0-10.0)
[2023-05-01 03:55] LABS: INR 0.98 (0.83-1.09); PROTHROMBIN TIME (PATIENT) 11.4 SEC (9.7-13.0)
[2023-05-01 03:56] LABS: POTASSIUM 3.9 mmol/L (3.5-5.1)
[2023-05-01 03:58] LABS: ACTIVATED PTT 25.9 SECONDS (25.2-36.5); CALCIUM 8.9 mg/dL (8.5-10.1)
[2023-05-01 03:59] LABS: ALBUMIN 3.8 g/dl (3.4-5.0); BLOOD UREA NITROGEN 18.9 mg/dL (7-18)
[2023-05-01 04:02] LABS: CREATININE 1.3 mg/dL (0.55-1.3)
[2023-05-01 04:03] LABS: BILIRUBIN,TOTAL 0.2 mg/dL (0.2-1); TOT PROT 6.7 g/dl (6.4-8.2)
[2023-05-01] MEDS ORDERED: ASPIRIN 81 MG CHEWABLE TABLETS PO ONE (05:01)
[2023-05-01] MEDS ORDERED: ASPIRIN 81 MG CHEWABLE TABLETS ONE (05:18)
[2023-05-01 06:23] VITALS: TEMP 97.8
[2023-05-01] MEDS: INSULIN SLIDING SCALE (NOVOLOG) 1 VIAL SQ SCH ×2 (07:00→11:04)
[2023-05-01] MEDS ORDERED: NICOTINE 14 MG/24 HOURS TOPICAL PATCH TD ONE (09:49)
[2023-05-01] MEDS ORDERED: ENOXAPARIN NA (PORCINE) 40 MG/0.4 ML DISP.SYRIN SQ ONE (09:49)
[2023-05-01 09:56] VITALS: BP 120/78; PULSE 87
[2023-05-01] MEDS ORDERED: ENOXAPARIN NA (PORCINE) 40 MG/0.4 ML DISP.SYRIN SQ SCH (10:00)
[2023-05-01] MEDS ORDERED: NICOTINE 14 MG/24 HOURS TOPICAL PATCH TD SCH (10:00)
[2023-05-01 12:05] VITALS: BMI 18.3
[2023-05-01 13:48] VITALS: RESP 20
== END 2023-05-01 15:30 | disposition home or self-care (01) ==
LOC: JER 01:21 → UNDOADMOB 04:16 → JERBED 04:16 → OBSVTOIN 06:15 → INTOOBSV 06:15 → JERBED 06:55 → J6S 10:25
PROVIDERS: ADMIT Internal Medicine
PROC: 3E033NZ Introduction of Analgesics, Hypnotics, Sedatives into Peripheral Vein, Percutaneous Approach (ICD-10-PCS; principal; 2023-05-01)
PROC: 3E023GC Introduction of Other Therapeutic Substance into Muscle, Percutaneous Approach (ICD-10-PCS; 2023-05-01)
DX: R07.9 Chest pain, unspecified (principal); Z91.199 Patient's noncompliance with other medical treatment and regimen due to unspecified reason; I25.10 Atherosclerotic heart disease of native coronary artery without angina pectoris; E78.5 Hyperlipidemia, unspecified; E11.9 Type 2 diabetes mellitus without complications; I11.0 Hypertensive heart disease with heart failure; Z95.5 Presence of coronary angioplasty implant and graft; F17.210 Nicotine dependence, cigarettes, uncomplicated; D64.9 Anemia, unspecified; F19.10 Other psychoactive substance abuse, uncomplicated
CPT/HCPCS: 36415; 71046-TC-FY; 80053; 82550; 82728; 82962; 83540; 83550; 84466; 84484; 85025; 85045; 85610; 85730; 93005; 93010; 96372; 96374; 99285-25; G0378

== ENCOUNTER 2023-05-18 22:56 | Observation (INO) | payer OTHER ==
[2023-05-18] MEDS ORDERED: ASPIRIN 81 MG CHEWABLE TABLETS PO ONE (23:09)
[2023-05-18 23:16] VITALS: BP 127/76; PULSE 100; RESP 18; TEMP 97.3; BMI 18.8
[2023-05-18] MEDS ORDERED: ASPIRIN 81 MG CHEWABLE TABLETS ONE (23:35)
[2023-05-18 23:55] LABS: BASO % 0.9 % (0-2.0); EOS % 3.8 % (0-4.5); HEMATOCRIT 36.4 % (35.4-49); HEMOGLOBIN 12.1 GM/dL (11.7-16.9); LYMPH % 32.4 % (8-40); MCH 31.9 pg (25.7-33.7); MCHC 33.3 g/dl (32.0-35.9); MEAN CELL VOLUME 95.9 fl (80-96); MEAN PLT VOLUME 7.2 fl (7.5-11.1); MONO % 13.8 % (3.8-10.2); NEUT % 49.1 % (42.8-82.8); PLATELET COUNT 343 10^3/uL (134-434); RBC 3.79 M/mm3 (4.00-5.60); RDW 14.6 % (11.9-15.9); WHITE BLOOD COUNT 6.6 K/mm3 (4.0-10.0)
[2023-05-19 00:01] LABS: INR 0.95 (0.83-1.09)
[2023-05-19 00:03] LABS: ACTIVATED PTT 26.8 SECONDS (25.2-36.5)
[2023-05-19 00:13] LABS: POTASSIUM 4.2 mmol/L (3.5-5.1)
[2023-05-19 00:16] LABS: CALCIUM 8.9 mg/dL (8.5-10.1)
[2023-05-19 00:17] LABS: ALBUMIN 4.1 g/dl (3.4-5.0); MAGNESIUM 1.9 mg/dL (1.8-2.4)
[2023-05-19 00:20] LABS: CREATININE 1.3 mg/dL (0.55-1.3)
[2023-05-19 00:21] LABS: TOT PROT 7.4 g/dl (6.4-8.2)
[2023-05-19 00:22] LABS: BILIRUBIN,TOTAL 0.3 mg/dL (0.2-1)
== END 2023-05-19 04:47 | disposition left against medical advice (07) ==
LOC: JER 22:56 → JERBED 05-19 01:49
PROVIDERS: ADMIT Internal Medicine; ATTEND Internal Medicine
DX: R07.9 Chest pain, unspecified (principal); I25.10 Atherosclerotic heart disease of native coronary artery without angina pectoris; I11.0 Hypertensive heart disease with heart failure; E78.5 Hyperlipidemia, unspecified; E11.9 Type 2 diabetes mellitus without complications; Z95.5 Presence of coronary angioplasty implant and graft; K46.9 Unspecified abdominal hernia without obstruction or gangrene
CPT/HCPCS: 36415; 71046-TC-FY; 80053; 83735; 84484; 85025; 85610; 85730; 93005; 93010; 99285-25; G0378

== ENCOUNTER 2023-11-16 01:32 | Observation (INO) | payer OTHER ==
[2023-11-16 01:36] VITALS: RESP 18; TEMP 97.8; BMI 20.3
[2023-11-16] MEDS ORDERED: ACETAMINOPHEN INJECTION 100 ML IVPB ONE (02:01)
[2023-11-16] MEDS: ACETAMINOPHEN 1000 MG/100 ML BAG IVPB ONE (02:26)
[2023-11-16 02:30] LABS: BASO % 0.6 % (0-2.0); EOS % 0.4 % (0-4.5); HEMATOCRIT 32.6 % (35.4-49); LYMPH % 15.7 % (8-40); MCH 30.1 pg (25.7-33.7); MCHC 33.8 g/dl (32.0-35.9); MEAN CELL VOLUME 89.1 fl (80-96); MEAN PLT VOLUME 6.6 fl (7.5-11.1); MONO % 8.6 % (3.8-10.2); NEUT % 74.7 % (42.8-82.8); PLATELET COUNT 455 10^3/uL (134-434); RBC 3.66 M/mm3 (4.00-5.60); RDW 15.5 % (11.9-15.9); WHITE BLOOD COUNT 12.2 K/mm3 (4.0-10.0)
[2023-11-16 02:37] LABS: INR 1.01 (0.83-1.09); PROTHROMBIN TIME (PATIENT) 11.6 SEC (9.7-13.0)
[2023-11-16 02:40] LABS: ACTIVATED PTT 25.6 SECONDS (25.2-36.5)
[2023-11-16 02:49] LABS: POTASSIUM 4.6 mmol/L (3.5-5.1)
[2023-11-16 02:51] LABS: ALBUMIN 4.1 g/dl (3.4-5.0); BLOOD UREA NITROGEN 15.6 mg/dL (7-18); CALCIUM 9.7 mg/dL (8.5-10.1)
[2023-11-16 02:54] LABS: CREATININE 1.3 mg/dL (0.55-1.3)
[2023-11-16 02:56] LABS: BILIRUBIN,TOTAL 0.4 mg/dL (0.2-1); TOT PROT 7.8 g/dl (6.4-8.2)
[2023-11-16] MEDS ORDERED: ALBUTEROL SO4 HFA INHALER IH PRN (05:34)
[2023-11-16] MEDS ORDERED: PATIENT'S OWN MEDICATION (NON-FORMULARY) (Hydroxyzine Hcl [Hydroxyzine Hcl] 25 MG Tablet) PO PRN (05:34)
[2023-11-16 06:09] LABS: HEMATOCRIT 32.5 % (35.4-49); HEMOGLOBIN 10.9 GM/dL (11.7-16.9); MCHC 33.4 g/dl (32.0-35.9); MEAN CELL VOLUME 89.8 fl (80-96); MEAN PLT VOLUME 6.8 fl (7.5-11.1); PLATELET COUNT 454 10^3/uL (134-434); RBC 3.62 M/mm3 (4.00-5.60); RDW 15.3 % (11.9-15.9); WHITE BLOOD COUNT 11.5 K/mm3 (4.0-10.0)
[2023-11-16 06:28] LABS: POTASSIUM 4.1 mmol/L (3.5-5.1)
[2023-11-16 06:32] LABS: CALCIUM 9.3 mg/dL (8.5-10.1)
[2023-11-16 06:33] LABS: ALBUMIN 3.9 g/dl (3.4-5.0); BLOOD UREA NITROGEN 15.7 mg/dL (7-18); MAGNESIUM 2.3 mg/dL (1.8-2.4)
[2023-11-16 06:36] LABS: CREATININE 1.2 mg/dL (0.55-1.3); PHOSPHOROUS 4.4 mg/dL (2.5-4.9)
[2023-11-16 06:37] LABS: BILIRUBIN,TOTAL 0.4 mg/dL (0.2-1); TOT PROT 7.2 g/dl (6.4-8.2)
[2023-11-16] MEDS: INSULIN ASPART SLIDING SCALE (NOVOLOG) 1 VIAL SQ SCH (07:21)
[2023-11-16 08:51] VITALS: BP 135/74; PULSE 87
[2023-11-16] MEDS ORDERED: ENOXAPARIN NA (PORCINE) 40 MG/0.4 ML DISP.SYRIN SQ ONE (08:52)
[2023-11-16] MEDS ORDERED: ASPIRIN 81 MG CHEWABLE TABLETS ONE (08:52)
[2023-11-16] MEDS ORDERED: CLOPIDOGREL BISULFATE 75 MG TABLET (FP) ONE (08:52)
[2023-11-16] MEDS: CLOPIDOGREL BISULFATE 75 MG TABLET (FP) PO SCH (09:07)
[2023-11-16] MEDS: ENOXAPARIN NA (PORCINE) 40 MG/0.4 ML DISP.SYRIN SQ SCH (09:07)
[2023-11-16] MEDS: ASPIRIN COATED 81 MG TABLET.EC PO SCH (09:07)
[2023-11-16] MEDS ORDERED: PATIENT'S OWN MEDICATION (NON-FORMULARY) (Aspirin [Vazalore] 81 MG Capsule) PO SCH (10:00)
[2023-11-16] MEDS ORDERED: ATORVASTATIN CA 80 MG TABLET (FP) PO SCH (22:00)
== END 2023-11-16 10:10 | disposition left against medical advice (07) ==
LOC: JER 01:32 → JERBED 03:28
PROVIDERS: ADMIT Internal Medicine; ATTEND Internal Medicine
PROC: 3E033NZ Introduction of Analgesics, Hypnotics, Sedatives into Peripheral Vein, Percutaneous Approach (ICD-10-PCS; principal; 2023-11-16)
PROC: 3E023GC Introduction of Other Therapeutic Substance into Muscle, Percutaneous Approach (ICD-10-PCS; 2023-11-16)
DX: R07.9 Chest pain, unspecified (principal); D72.829 Elevated white blood cell count, unspecified; E11.9 Type 2 diabetes mellitus without complications; F12.90 Cannabis use, unspecified, uncomplicated; I10 Essential (primary) hypertension; F19.21 Other psychoactive substance dependence, in remission; E78.5 Hyperlipidemia, unspecified; I25.10 Atherosclerotic heart disease of native coronary artery without angina pectoris; Z86.73 Personal history of transient ischemic attack (TIA), and cerebral infarction without residual deficits; Z95.5 Presence of coronary angioplasty implant and graft; Z87.891 Personal history of nicotine dependence
CPT/HCPCS: 36415; 71046-TC-FY; 80053; 80061; 82550; 83735; 84100; 84439; 84443; 84484; 85025; 85027; 85610; 85730; 93005; 93010; 96372; 96374; 99285-25; G0378; J0131

== ENCOUNTER 2023-11-16 17:52 | Emergency (ER) | payer OTHER ==
[2023-11-16 18:06] VITALS: BP 166/63; PULSE 91; RESP 19; TEMP 99.6; BMI 19.8
== END 2023-11-16 18:54 | disposition home or self-care (01) ==
LOC: JERFT 17:52
DX: Z76.0 Encounter for issue of repeat prescription (principal)
CPT/HCPCS: 99281-25

== ENCOUNTER 2023-11-22 21:44 | Emergency (ER) | payer OTHER ==
[2023-11-22 21:58] VITALS: BP 125/70; PULSE 75; RESP 18; TEMP 98.1; BMI 20.3
[2023-11-22] MEDS ORDERED: ALBUTEROL SO4 HFA INHALER IH ONE (22:34)
[2023-11-22] MEDS: ALBUTEROL SO4 HFA INHALER IH ONE (22:53)
[2023-11-22 22:54] LABS: BASO % 0.6 % (0-2.0); EOS % 4.4 % (0-4.5); HEMATOCRIT 29.6 % (35.4-49); MCH 30.4 pg (25.7-33.7); MCHC 33.9 g/dl (32.0-35.9); MEAN CELL VOLUME 89.9 fl (80-96); MEAN PLT VOLUME 6.5 fl (7.5-11.1); MONO % 10.2 % (3.8-10.2); NEUT % 61.8 % (42.8-82.8); PLATELET COUNT 535 10^3/uL (134-434); RBC 3.29 M/mm3 (4.00-5.60); WHITE BLOOD COUNT 8.3 K/mm3 (4.0-10.0)
[2023-11-22 23:00] LABS: INR 1.04 (0.83-1.09); PROTHROMBIN TIME (PATIENT) 11.7 SEC (9.7-13.0)
[2023-11-22 23:09] LABS: POTASSIUM 3.8 mmol/L (3.5-5.1)
[2023-11-22 23:13] LABS: CALCIUM 8.7 mg/dL (8.5-10.1)
[2023-11-22 23:14] LABS: ALBUMIN 3.4 g/dl (3.4-5.0); BLOOD UREA NITROGEN 20.3 mg/dL (7-18)
[2023-11-22 23:17] LABS: CREATININE 1.2 mg/dL (0.55-1.3); PHOSPHOROUS 3.5 mg/dL (2.5-4.9)
[2023-11-22 23:18] LABS: BILIRUBIN,TOTAL 0.2 mg/dL (0.2-1); TOT PROT 6.5 g/dl (6.4-8.2)
== END 2023-11-23 09:10 | disposition home or self-care (01) ==
LOC: JER 21:44
DX: R07.2 Precordial pain (principal); M54.50 Low back pain, unspecified; G89.29 Other chronic pain
CPT/HCPCS: 36415; 71045-TC-FY; 80053; 83735; 84100; 84484; 85025; 85610; 85730; 93005; 93010; 99285-25

== ENCOUNTER 2023-12-17 02:22 | Emergency (ER) | payer OTHER ==
[2023-12-17 02:35] VITALS: BP 112/63; PULSE 76; RESP 20; TEMP 97.8; BMI 19.8
== END 2023-12-17 03:33 | disposition home or self-care (01) ==
LOC: JER 02:22
DX: R07.89 Other chest pain (principal); G89.29 Other chronic pain
CPT/HCPCS: 93005; 93010; 99283-25

== ENCOUNTER 2023-12-24 11:40 | Emergency (ER) | payer OTHER ==
[2023-12-24 13:13] VITALS: BP 129/77; PULSE 82; RESP 18; TEMP 97.6; BMI 19.8
== END 2023-12-24 12:59 | disposition home or self-care (01) ==
LOC: JER 11:40
DX: M54.50 Low back pain, unspecified (principal); G89.29 Other chronic pain
CPT/HCPCS: 93005; 93010; 99283-25

== ENCOUNTER 2023-12-25 16:39 | Emergency (ER) | payer OTHER ==
[2023-12-25 16:47] VITALS: BP 114/69; PULSE 88; RESP 18; TEMP 97; BMI 19.8
== END 2023-12-25 17:48 | disposition left against medical advice (07) ==
LOC: JERFT 16:39 → JER 16:39 → JERFT 17:48
DX: Z76.0 Encounter for issue of repeat prescription (principal); R07.9 Chest pain, unspecified
CPT/HCPCS: 99283-25

== ENCOUNTER 2024-01-04 20:06 | Emergency (ER) | payer OTHER ==
[2024-01-04 20:10] VITALS: BP 138/76; PULSE 86; RESP 18; TEMP 98; BMI 21.9
== END 2024-01-04 23:24 | disposition home or self-care (01) ==
LOC: JER 20:06
DX: M79.10 Myalgia, unspecified site (principal); G89.29 Other chronic pain; Z76.5 Malingerer [conscious simulation]
CPT/HCPCS: 99283-25

== ENCOUNTER 2024-01-13 22:24 | Emergency (ER) | payer OTHER ==
[2024-01-13 22:38] VITALS: TEMP 98.1; BMI 19.8
[2024-01-13] MEDS ORDERED: oxyCODONE HCL 5 MG TABLET ONE (23:47)
[2024-01-13] MEDS: oxyCODONE HCL 5 MG TABLET PO ONE (23:57)
[2024-01-14 00:28] VITALS: BP 127/75; PULSE 75; RESP 16
[2024-01-14 01:16] LABS: HIV INTERPRETATION NEGATIVE (NEGATIVE)
== END 2024-01-14 07:14 | disposition home or self-care (01) ==
LOC: JER 22:24
DX: R10.84 Generalized abdominal pain (principal); G89.29 Other chronic pain; R07.9 Chest pain, unspecified; M54.9 Dorsalgia, unspecified; M79.606 Pain in leg, unspecified; M79.89 Other specified soft tissue disorders
CPT/HCPCS: 36415; 87389; 93005; 93010; 99284-25

== ENCOUNTER 2024-01-20 19:06 | Inpatient (IN) | payer OTHER ==
[2024-01-21 00:09] LABS: BASO % 0.6 % (0-2.0); EOS % 3.4 % (0-4.5); HEMATOCRIT 37.1 % (35.4-49); HEMOGLOBIN 12.8 GM/dL (11.7-16.9); LYMPH % 20.3 % (8-40); MCH 31.4 pg (25.7-33.7); MCHC 34.6 g/dl (32.0-35.9); MEAN CELL VOLUME 90.9 fl (80-96); MEAN PLT VOLUME 6.9 fl (7.5-11.1); MONO % 9.4 % (3.8-10.2); NEUT % 66.3 % (42.8-82.8); PLATELET COUNT 392 10^3/uL (134-434); RBC 4.08 M/mm3 (4.00-5.60); RDW 14.7 % (11.9-15.9); WHITE BLOOD COUNT 7.7 K/mm3 (4.0-10.0)
[2024-01-21 00:15] LABS: INR 0.96 (0.83-1.09)
[2024-01-21 00:29] LABS: CALCIUM 9.6 mg/dL (8.5-10.1)
[2024-01-21 00:30] LABS: BLOOD UREA NITROGEN 9.6 mg/dL (7-18)
[2024-01-21 00:33] LABS: CREATININE 0.8 mg/dL (0.55-1.3)
[2024-01-21 00:34] LABS: BILIRUBIN,TOTAL 0.3 mg/dL (0.2-1); TOT PROT 7.4 g/dl (6.4-8.2)
[2024-01-21] MEDS: oxyCODONE HCL 5 MG TABLET PO PRN (05:27)
[2024-01-21] MEDS: ACETAMINOPHEN 325 MG TABLET (FP) PO PRN ×2 (05:28→21:43)
[2024-01-21 06:08] LABS: URINE BARBITURATES NEGATIVE (NEGATIVE)
[2024-01-21 06:09] LABS: COCAINE, UR NEGATIVE (NEGATIVE); METHADONE, UR NEGATIVE (NEGATIVE); PHENCYCLIDINE,URINE NEGATIVE (NEGATIVE); URINE BENZODIAZEPINES NEGATIVE (NEGATIVE)
[2024-01-21 06:24] LABS: URINE AMPHETAMINES NEGATIVE (NEGATIVE)
[2024-01-21 06:30] LABS: OPIATES, URI POSITIVE (NEGATIVE)
[2024-01-21] MEDS: ASPIRIN 81 MG CHEWABLE TABLETS PO SCH (09:20)
[2024-01-21] MEDS: LOSARTAN POTASSIUM 50 MG TABLET PO SCH (09:20)
[2024-01-21] MEDS: ARTIFICIAL TEARS OPHTHALMIC DROPS OU SCH (09:21)
[2024-01-21] MEDS: CELECOXIB 100 MG CAPSULE PO SCH (09:21)
[2024-01-21] MEDS: amLODIPine BESYLATE 10 MG TABLET (FP) PO SCH (09:21)
[2024-01-21 13:58] VITALS: BMI 18.1
[2024-01-21] MEDS: ATORVASTATIN CA 80 MG TABLET (FP) PO SCH (21:42)
[2024-01-22] MEDS: EZETIMIBE 10 MG TABLET (FP) PO SCH (09:27)
[2024-01-22 11:35] LABS: HEMOGLOBIN 14.8 GM/dL (11.7-16.9); MCH 31.3 pg (25.7-33.7); MCHC 33.7 g/dl (32.0-35.9); MEAN CELL VOLUME 92.9 fl (80-96); MEAN PLT VOLUME 7.9 fl (7.5-11.1); PLATELET COUNT 434 10^3/uL (134-434); RBC 4.73 M/mm3 (4.00-5.60); RDW 14.4 % (11.9-15.9); WHITE BLOOD COUNT 7.3 K/mm3 (4.0-10.0)
[2024-01-22 11:42] LABS: POTASSIUM 4.4 mmol/L (3.5-5.1)
[2024-01-22 11:44] LABS: BLOOD UREA NITROGEN 16.9 mg/dL (7-18); CALCIUM 9.9 mg/dL (8.5-10.1)
[2024-01-22] MEDS: oxyCODONE HCL 5 MG TABLET PO ONE (15:25)
[2024-01-23 07:10] LABS: HEMATOCRIT 40.9 % (35.4-49); HEMOGLOBIN 13.6 GM/dL (11.7-16.9); MCH 30.9 pg (25.7-33.7); MCHC 33.3 g/dl (32.0-35.9); MEAN CELL VOLUME 92.9 fl (80-96); MEAN PLT VOLUME 7.7 fl (7.5-11.1); PLATELET COUNT 383 10^3/uL (134-434); RDW 14.3 % (11.9-15.9); WHITE BLOOD COUNT 6.1 K/mm3 (4.0-10.0)
[2024-01-23 07:30] LABS: POTASSIUM 4.5 mmol/L (3.5-5.1)
[2024-01-23 07:33] LABS: BLOOD UREA NITROGEN 13.8 mg/dL (7-18); CALCIUM 9.6 mg/dL (8.5-10.1)
[2024-01-23 07:39] LABS: PHOSPHOROUS 3.6 mg/dL (2.5-4.9)
[2024-01-23] MEDS: ASPIRIN COATED 81 MG TABLET.EC PO SCH (09:13)
[2024-01-24 06:33] VITALS: RESP 16
[2024-01-24 07:51] VITALS: BP 148/86; PULSE 78; TEMP 97.9
== END 2024-01-24 12:25 | disposition home or self-care (01) | DRG 87 ==
LOC: JER 19:06 → JERFT 19:06 → JERBED 23:49 → JICU 01-21 04:15 → J4S 01-24 00:44
PROVIDERS: ADMIT Internal Medicine Pulmonary Disease; ATTEND Internal Medicine
DX: S06.5X0A Traumatic subdural hemorrhage without loss of consciousness, initial encounter (principal); I10 Essential (primary) hypertension; F20.9 Schizophrenia, unspecified; I25.10 Atherosclerotic heart disease of native coronary artery without angina pectoris; M54.50 Low back pain, unspecified; H11.33 Conjunctival hemorrhage, bilateral; G89.29 Other chronic pain; E78.5 Hyperlipidemia, unspecified; E11.9 Type 2 diabetes mellitus without complications; Y08.89XA Assault by other specified means, initial encounter; Y93.9 Activity, unspecified; Y92.410 Unspecified street and highway as the place of occurrence of the external cause; Y99.9 Unspecified external cause status; Z95.5 Presence of coronary angioplasty implant and graft
CPT/HCPCS: 36415; 70450-TC; 70486-TC; 80048; 80053; 80307; 82962; 83735; 84100; 85025; 85027; 85610; 85730; 87635; 99285-25

== ENCOUNTER 2024-01-28 04:34 | Emergency (ER) | payer OTHER ==
[2024-01-28] MEDS ORDERED: KETOROLAC TROMETHAMINE 30 MG/1 ML VIAL ONE (05:07)
[2024-01-28 05:09] VITALS: BP 152/62; PULSE 82; RESP 16; TEMP 98.1; BMI 20.3
[2024-01-28] MEDS: KETOROLAC TROMETHAMINE 30 MG/1 ML VIAL IM ONE (05:12)
== END 2024-01-28 07:25 | disposition home or self-care (01) ==
LOC: JER 04:34
PROC: 3E0133Z Introduction of Anti-inflammatory into Subcutaneous Tissue, Percutaneous Approach (ICD-10-PCS; principal; 2024-01-28)
DX: M25.519 Pain in unspecified shoulder (principal); M54.9 Dorsalgia, unspecified; M79.606 Pain in leg, unspecified; G89.29 Other chronic pain
CPT/HCPCS: 96372; 99284-25

== ENCOUNTER 2024-01-30 06:22 | Emergency (ER) | payer OTHER ==
[2024-01-30 06:28] VITALS: BP 125/74; PULSE 69; RESP 18; TEMP 98; BMI 27.4
[2024-01-30] MEDS ORDERED: ACETAMINOPHEN 325 MG TABLET (FP) ONE (08:30)
[2024-01-30] MEDS: ACETAMINOPHEN 500 MG TABLET (FP) PO ONE (08:41)
== END 2024-01-30 12:31 | disposition home or self-care (01) ==
LOC: JER 06:22
DX: M54.50 Low back pain, unspecified (principal); G89.29 Other chronic pain; R07.9 Chest pain, unspecified
CPT/HCPCS: 71045-TC-FY; 93005; 93010; 99284-25

== ENCOUNTER 2024-01-31 19:28 | Emergency (ER) | payer OTHER ==
[2024-01-31 19:33] VITALS: BP 148/80; PULSE 89; RESP 20; TEMP 97.9; BMI 19.8
== END 2024-01-31 20:33 | disposition home or self-care (01) ==
LOC: JER 19:28
DX: R07.9 Chest pain, unspecified (principal); G89.29 Other chronic pain; Z76.5 Malingerer [conscious simulation]
CPT/HCPCS: 93005; 93010; 99283-25

== ENCOUNTER 2024-02-15 16:38 | Observation (INO) | payer OTHER ==
[2024-02-15 16:48] VITALS: BMI 20.9
[2024-02-15] MEDS ORDERED: ACETAMINOPHEN 325 MG TABLET (FP) ONE (17:26)
[2024-02-15] MEDS: ACETAMINOPHEN 325 MG TABLET (FP) PO ONE (17:28)
[2024-02-15 17:39] LABS: HEMATOCRIT 32.2 % (35.4-49); MCH 30.3 pg (25.7-33.7); MCHC 34.1 g/dl (32.0-35.9); MEAN PLT VOLUME 6.8 fl (7.5-11.1); PLATELET COUNT 306 10^3/uL (134-434); RBC 3.62 M/mm3 (4.00-5.60); RDW 14.1 % (11.9-15.9)
[2024-02-15 17:54] LABS: POTASSIUM 3.8 mmol/L (3.5-5.1)
[2024-02-15 17:56] LABS: ALBUMIN 3.6 g/dl (3.4-5.0); BLOOD UREA NITROGEN 11.9 mg/dL (7-18)
[2024-02-15 17:59] LABS: CREATININE 1.1 mg/dL (0.55-1.3)
[2024-02-15 18:01] LABS: BILIRUBIN,TOTAL 0.4 mg/dL (0.2-1); TOT PROT 6.8 g/dl (6.4-8.2)
[2024-02-15] MEDS ORDERED: ALBUTEROL SO4 HFA INHALER IH PRN (21:43)
[2024-02-15] MEDS ORDERED: NITROGLYCERIN SUBLINGUAL 1/200 0.3 MG BTL SL PRN (21:43)
[2024-02-15] MEDS ORDERED: QUEtiapine FUMARATE 100 MG TABLET (FP) ONE (22:14)
[2024-02-15] MEDS ORDERED: ATORVASTATIN CA 80 MG TABLET (FP) ONE (22:14)
[2024-02-15] MEDS: ATORVASTATIN CA 80 MG TABLET (FP) PO SCH (22:21)
[2024-02-15] MEDS: QUEtiapine FUMARATE 100 MG TABLET (FP) PO SCH (22:21)
[2024-02-15] MEDS ORDERED: NITROGLYCERIN SUBLINGUAL 1/150 0.4 MG TAB SL PRN (22:55)
[2024-02-16 07:21] LABS: HEMATOCRIT 34.2 % (35.4-49); HEMOGLOBIN 11.8 GM/dL (11.7-16.9); MCH 31.2 pg (25.7-33.7); MCHC 34.6 g/dl (32.0-35.9); MEAN CELL VOLUME 90.1 fl (80-96); MEAN PLT VOLUME 7.1 fl (7.5-11.1); PLATELET COUNT 301 10^3/uL (134-434); RBC 3.79 M/mm3 (4.00-5.60); RDW 14.2 % (11.9-15.9); WHITE BLOOD COUNT 7.4 K/mm3 (4.0-10.0)
[2024-02-16 07:28] LABS: POTASSIUM 3.6 mmol/L (3.5-5.1)
[2024-02-16 07:43] LABS: BLOOD UREA NITROGEN 13.5 mg/dL (7-18)
[2024-02-16 07:44] LABS: ALBUMIN 3.6 g/dl (3.4-5.0); BILIRUBIN,TOTAL 0.3 mg/dL (0.2-1); CALCIUM 9.2 mg/dL (8.5-10.1); MAGNESIUM 1.9 mg/dL (1.8-2.4); TOT PROT 6.6 g/dl (6.4-8.2)
[2024-02-16 07:47] LABS: PHOSPHOROUS 3.6 mg/dL (2.5-4.9)
[2024-02-16 08:04] VITALS: TEMP 97.7
[2024-02-16] MEDS ORDERED: ACETAMINOPHEN INJECTION 100 ML ONE (09:31)
[2024-02-16 09:46] VITALS: BP 139/67; PULSE 88; RESP 16
[2024-02-16] MEDS: ACETAMINOPHEN 1000 MG/100 ML BAG IVPB PRN (09:53)
[2024-02-16] MEDS: LOSARTAN POTASSIUM 50 MG TABLET PO SCH (09:54)
[2024-02-16] MEDS: ACETAMINOPHEN 325 MG TABLET (FP) PO SCH (09:54)
[2024-02-16] MEDS: EZETIMIBE 10 MG TABLET (FP) PO SCH (09:54)
[2024-02-16] MEDS: amLODIPine BESYLATE 10 MG TABLET (FP) PO SCH (09:54)
[2024-02-16] MEDS ORDERED: clonazePAM 2 MG TABLET PO PRN (10:00)
[2024-02-16] MEDS ORDERED: clonazePAM 2 MG TABLET ONE (10:55)
[2024-02-16] MEDS: clonazePAM 2 MG TABLET PO SCH (11:01)
== END 2024-02-16 11:15 | disposition left against medical advice (07) ==
LOC: JER 16:38 → JERBED 18:27
PROVIDERS: ADMIT Internal Medicine; ATTEND Nurse Practitioner Acute Care
PROC: 3E033NZ Introduction of Analgesics, Hypnotics, Sedatives into Peripheral Vein, Percutaneous Approach (ICD-10-PCS; principal; 2024-02-15)
DX: J45.909 Unspecified asthma, uncomplicated (principal); R07.9 Chest pain, unspecified; E78.5 Hyperlipidemia, unspecified; I10 Essential (primary) hypertension; F19.10 Other psychoactive substance abuse, uncomplicated; R55 Syncope and collapse; R73.03 Prediabetes; I25.10 Atherosclerotic heart disease of native coronary artery without angina pectoris; F31.9 Bipolar disorder, unspecified; Z95.5 Presence of coronary angioplasty implant and graft; Z86.73 Personal history of transient ischemic attack (TIA), and cerebral infarction without residual deficits; M25.562 Pain in left knee; M25.561 Pain in right knee; Z59.00 Homelessness unspecified; Z29.89 Encounter for other specified prophylactic measures; F17.210 Nicotine dependence, cigarettes, uncomplicated
CPT/HCPCS: 0241U-QW; 36415; 70450-TC; 71045-TC-FY; 80053; 83735; 84100; 84484; 85027; 85379; 96374; 99285-25; G0378; J0131

== ENCOUNTER 2024-02-19 14:03 | Emergency (ER) | payer OTHER ==
[2024-02-19 14:53] VITALS: TEMP 98.4; BMI 19.8
[2024-02-19] MEDS ORDERED: ACETAMINOPHEN 325 MG TABLET (FP) ONE (16:05)
[2024-02-19] MEDS ORDERED: ASPIRIN 81 MG CHEWABLE TABLETS ONE (16:05)
[2024-02-19 16:36] LABS: BASO % 0.7 % (0-2.0); EOS % 3.4 % (0-4.5); HEMATOCRIT 32.2 % (35.4-49); LYMPH % 35.2 % (8-40); MCH 30.7 pg (25.7-33.7); MCHC 34.2 g/dl (32.0-35.9); MEAN CELL VOLUME 89.7 fl (80-96); MEAN PLT VOLUME 6.9 fl (7.5-11.1); MONO % 9.7 % (3.8-10.2); PLATELET COUNT 276 10^3/uL (134-434); RBC 3.59 M/mm3 (4.00-5.60); RDW 14.1 % (11.9-15.9); WHITE BLOOD COUNT 5.3 K/mm3 (4.0-10.0)
[2024-02-19] MEDS: ASPIRIN 81 MG CHEWABLE TABLETS PO ONE (16:36)
[2024-02-19] MEDS: ACETAMINOPHEN 325 MG TABLET (FP) PO ONE (16:36)
[2024-02-19 17:46] LABS: POTASSIUM 3.8 mmol/L (3.5-5.1)
[2024-02-19 17:49] LABS: CALCIUM 9.2 mg/dL (8.5-10.1)
[2024-02-19 17:50] LABS: ALBUMIN 3.7 g/dl (3.4-5.0)
[2024-02-19 17:54] LABS: BILIRUBIN,TOTAL 0.4 mg/dL (0.2-1); TOT PROT 6.9 g/dl (6.4-8.2)
[2024-02-19 20:29] VITALS: BP 119/73; PULSE 65; RESP 18
== END 2024-02-19 22:27 | disposition home or self-care (01) ==
LOC: JER 14:03
DX: R07.89 Other chest pain (principal); R06.02 Shortness of breath
CPT/HCPCS: 36415; 71046-TC-FY; 80053; 84484; 85025; 93005; 93010; 99285-25

== ENCOUNTER 2024-02-24 15:52 | Emergency (ER) | payer OTHER ==
[2024-02-24 17:17] VITALS: BP 140/85; PULSE 75; RESP 18; TEMP 97.8; BMI 21.4
== END 2024-02-24 16:30 | disposition left against medical advice (07) ==
LOC: JER 15:52
DX: Z00.01 Encounter for general adult medical examination with abnormal findings (principal)
CPT/HCPCS: 93005; 93010; 99284-25

== ENCOUNTER 2024-02-28 21:47 | Emergency (ER) | payer OTHER ==
[2024-02-28 22:01] VITALS: BP 121/70; PULSE 76; RESP 19; TEMP 98.5; BMI 19.8
[2024-02-28 22:22] LABS: HEMATOCRIT 30.3 % (35.4-49); HEMOGLOBIN 10.2 GM/dL (11.7-16.9); MCH 30.1 pg (25.7-33.7); MCHC 33.8 g/dl (32.0-35.9); MEAN CELL VOLUME 89.2 fl (80-96); MEAN PLT VOLUME 6.4 fl (7.5-11.1); PLATELET COUNT 314 10^3/uL (134-434); RBC 3.39 M/mm3 (4.00-5.60); RDW 14.9 % (11.9-15.9); WHITE BLOOD COUNT 6.7 K/mm3 (4.0-10.0)
[2024-02-28 22:45] LABS: POTASSIUM 4.3 mmol/L (3.5-5.1)
[2024-02-28 22:47] LABS: ALBUMIN 3.6 g/dl (3.4-5.0); CALCIUM 8.9 mg/dL (8.5-10.1)
[2024-02-28 22:50] LABS: CREATININE 1.2 mg/dL (0.55-1.3)
[2024-02-28 22:52] LABS: BILIRUBIN,TOTAL 0.3 mg/dL (0.2-1); TOT PROT 6.4 g/dl (6.4-8.2)
== END 2024-02-29 00:49 | disposition home or self-care (01) ==
LOC: JER 21:47
DX: R07.9 Chest pain, unspecified (principal)
CPT/HCPCS: 36415; 80053; 84484; 85027; 93005; 93010; 99284-25

== ENCOUNTER 2024-03-04 09:35 | Emergency (ER) | payer OTHER ==
[2024-03-04 09:52] VITALS: BP 133/76; PULSE 75; RESP 17; TEMP 97.9; BMI 18.9
[2024-03-04 11:39] LABS: BASO % 0.5 % (0-2.0); EOS % 1.8 % (0-4.5); HEMATOCRIT 35.8 % (35.4-49); HEMOGLOBIN 11.8 GM/dL (11.7-16.9); LYMPH % 19.1 % (8-40); MCH 29.7 pg (25.7-33.7); MCHC 32.9 g/dl (32.0-35.9); MEAN CELL VOLUME 90.1 fl (80-96); MONO % 8.4 % (3.8-10.2); NEUT % 70.2 % (42.8-82.8); RBC 3.98 M/mm3 (4.00-5.60); RDW 15.5 % (11.9-15.9); WHITE BLOOD COUNT 6.9 K/mm3 (4.0-10.0)
[2024-03-04 11:58] LABS: POTASSIUM 5.7 mmol/L (3.5-5.1)
[2024-03-04 12:00] LABS: ALBUMIN 4.2 g/dl (3.4-5.0); BLOOD UREA NITROGEN 15.7 mg/dL (7-18); CALCIUM 9.6 mg/dL (8.5-10.1)
[2024-03-04 12:04] LABS: CREATININE 1.2 mg/dL (0.55-1.3)
[2024-03-04 12:05] LABS: BILIRUBIN,TOTAL 0.4 mg/dL (0.2-1); TOT PROT 7.8 g/dl (6.4-8.2)
[2024-03-04 12:09] LABS: PLATELET COUNT 413 10^3/uL (134-434)
[2024-03-04 15:08] LABS: HIV INTERPRETATION NEGATIVE (NEGATIVE)
== END 2024-03-04 15:27 | disposition home or self-care (01) ==
LOC: JER 09:35
DX: R07.89 Other chest pain (principal); R06.02 Shortness of breath; R05.9 Cough, unspecified
CPT/HCPCS: 36415; 71045-TC-FY; 80053; 84484; 85025; 86803; 87389; 93005; 93010; 99285-25

== ENCOUNTER 2024-03-07 22:25 | Emergency (ER) | payer OTHER ==
[2024-03-07 22:33] VITALS: BP 136/85; PULSE 75; RESP 20; TEMP 98.1; BMI 19.8
== END 2024-03-08 01:47 | disposition home or self-care (01) ==
LOC: JER 22:25
DX: M54.50 Low back pain, unspecified (principal); R07.9 Chest pain, unspecified; G89.29 Other chronic pain; Z76.5 Malingerer [conscious simulation]
CPT/HCPCS: 93005; 93010; 99284-25

== ENCOUNTER 2024-03-10 18:39 | Emergency (ER) | payer OTHER ==
[2024-03-10 19:48] VITALS: BP 138/86; PULSE 82; RESP 18; TEMP 98; BMI 19.7
== END 2024-03-10 20:21 | disposition home or self-care (01) ==
LOC: JER 18:39
DX: R07.9 Chest pain, unspecified (principal); G89.29 Other chronic pain
CPT/HCPCS: 99283-25

== ENCOUNTER 2024-03-13 20:37 | Emergency (ER) | payer OTHER ==
[2024-03-13 21:00] VITALS: BP 149/77; PULSE 80; RESP 16; TEMP 98.6; BMI 22.8
== END 2024-03-14 02:23 | disposition home or self-care (01) ==
LOC: JER 20:37
DX: M54.2 Cervicalgia (principal); R51.9 Headache, unspecified; M25.561 Pain in right knee; M25.562 Pain in left knee; R07.89 Other chest pain; G89.29 Other chronic pain; R06.02 Shortness of breath
CPT/HCPCS: 93005; 93010; 99283-25

== ENCOUNTER 2024-03-15 10:16 | Emergency (ER) | payer OTHER ==
[2024-03-15 10:52] VITALS: BP 149/76; PULSE 71; RESP 18; BMI 18.4
[2024-03-15 10:57] VITALS: TEMP 97.6
[2024-03-15 11:21] LABS: HEMATOCRIT 32.3 % (35.4-49); HEMOGLOBIN 10.9 GM/dL (11.7-16.9); LYMPH % 21.3 % (8-40); MCH 30.2 pg (25.7-33.7); MCHC 33.6 g/dl (32.0-35.9); MEAN CELL VOLUME 89.8 fl (80-96); MEAN PLT VOLUME 7.2 fl (7.5-11.1); MONO % 8.3 % (3.8-10.2); NEUT % 68.7 % (42.8-82.8); PLATELET COUNT 285 10^3/uL (134-434); RDW 15.7 % (11.9-15.9); WHITE BLOOD COUNT 6.8 K/mm3 (4.0-10.0)
[2024-03-15 11:22] LABS: BASO % 0.5 % (0-2.0); EOS % 1.2 % (0-4.5)
[2024-03-15 11:23] LABS: INR 1.02 (0.83-1.09); PROTHROMBIN TIME (PATIENT) 11.5 SEC (9.7-13.0)
[2024-03-15 11:35] LABS: POTASSIUM 3.9 mmol/L (3.5-5.1)
[2024-03-15 11:40] LABS: BLOOD UREA NITROGEN 12.2 mg/dL (7-18); CALCIUM 9.3 mg/dL (8.5-10.1); MAGNESIUM 2.1 mg/dL (1.8-2.4)
[2024-03-15 11:45] LABS: BILIRUBIN,TOTAL 0.3 mg/dL (0.2-1); TOT PROT 7.4 g/dl (6.4-8.2)
[2024-03-15 11:49] LABS: N-TERMINAL BNP 352.3 pg/ml (5-125)
== END 2024-03-15 11:35 | disposition left against medical advice (07) ==
LOC: JER 10:16
DX: R07.89 Other chest pain (principal)
CPT/HCPCS: 36415; 71045-TC-FY; 80053; 83735; 83880; 84484; 85025; 85610; 93005; 93010; 99285-25

== ENCOUNTER 2024-03-15 12:11 | Emergency (ER) | payer OTHER ==
[2024-03-15 12:29] VITALS: BP 148/83; PULSE 85; RESP 17; TEMP 97.7; BMI 24.7
== END 2024-03-15 13:30 | disposition left against medical advice (07) ==
LOC: JER 12:11
DX: R51.9 Headache, unspecified (principal); W18.30XA Fall on same level, unspecified, initial encounter; Y92.521 Bus station as the place of occurrence of the external cause
CPT/HCPCS: 70450-TC; 72125-TC; 73560-TC-RT-FY; 99284-25

== ENCOUNTER 2024-03-18 06:22 | Observation (INO) | payer OTHER ==
[2024-03-18 08:23] LABS: POTASSIUM 3.8 mmol/L (3.5-5.1)
[2024-03-18 08:25] LABS: ALBUMIN 3.8 g/dl (3.4-5.0); BLOOD UREA NITROGEN 9.9 mg/dL (7-18); CALCIUM 9.5 mg/dL (8.5-10.1)
[2024-03-18 08:29] LABS: CREATININE 0.9 mg/dL (0.55-1.3); TOT PROT 7.2 g/dl (6.4-8.2)
[2024-03-18 08:37] LABS: BASO % 0.6 % (0-2.0); EOS % 2.5 % (0-4.5); HEMATOCRIT 35.5 % (35.4-49); HEMOGLOBIN 12.1 GM/dL (11.7-16.9); LYMPH % 20.5 % (8-40); MCH 30.5 pg (25.7-33.7); MCHC 34.1 g/dl (32.0-35.9); MEAN CELL VOLUME 89.3 fl (80-96); MEAN PLT VOLUME 7.4 fl (7.5-11.1); NEUT % 64.4 % (42.8-82.8); PLATELET COUNT 328 10^3/uL (134-434); RBC 3.98 M/mm3 (4.00-5.60); RDW 15.8 % (11.9-15.9); WHITE BLOOD COUNT 6.6 K/mm3 (4.0-10.0)
[2024-03-18] MEDS ORDERED: metoPROLOL SUCCINATE 25 MG TAB.SR.24H (FP) PO ONE (13:58)
[2024-03-18] MEDS ORDERED: ASPIRIN COATED 81 MG TABLET.EC ONE (13:58)
[2024-03-18] MEDS: ASPIRIN COATED 81 MG TABLET.EC PO SCH (14:02)
[2024-03-18] MEDS: metoPROLOL SUCCINATE 25 MG TAB.SR.24H (FP) PO SCH (14:02)
[2024-03-18 16:24] VITALS: BMI 17.8
[2024-03-18] MEDS: HEPARIN NA (PORCINE) 5,000 UNITS/ML 1ML VIAL SQ SCH (23:32)
[2024-03-19] MEDS: BACLOFEN 10 MG TABLET (FP) PO PRN (10:14)
[2024-03-19] MEDS: amLODIPine BESYLATE 5 MG TABLET (FP) PO SCH (10:14)
[2024-03-19] MEDS: hydrOXYzine PAMOATE 25 MG CAPSULE (FP) PO PRN (15:18)
[2024-03-19] MEDS: ACETAMINOPHEN 500 MG TABLET (FP) PO PRN (17:11)
[2024-03-19] MEDS: ATORVASTATIN CA 40 MG TABLET (FP) PO SCH (23:18)
[2024-03-20] MEDS: CLOPIDOGREL BISULFATE 75 MG TABLET (FP) PO SCH (09:16)
[2024-03-20 09:47] VITALS: BP 162/80; PULSE 88; RESP 18; TEMP 98.9
[2024-03-20] MEDS ORDERED: ATORVASTATIN CA 10 MG TABLET (FP) PO SCH (22:00)
== END 2024-03-20 09:45 | disposition home or self-care (01) ==
LOC: JER 06:22 → JERBED 13:35 → J7W 14:46
PROVIDERS: ADMIT Internal Medicine; ATTEND Nurse Practitioner
DX: I11.9 Hypertensive heart disease without heart failure (principal); F19.10 Other psychoactive substance abuse, uncomplicated; F20.9 Schizophrenia, unspecified; M54.50 Low back pain, unspecified; E11.9 Type 2 diabetes mellitus without complications; J45.909 Unspecified asthma, uncomplicated; E78.5 Hyperlipidemia, unspecified; Z95.5 Presence of coronary angioplasty implant and graft; F17.200 Nicotine dependence, unspecified, uncomplicated
CPT/HCPCS: 36415; 71046-TC-FY; 80053; 80061; 82962; 83690; 84484; 85025; 93005; 93010; 99285-25; G0378; J0475

== ENCOUNTER 2024-03-20 18:02 | Emergency (ER) | payer OTHER ==
[2024-03-20 18:09] VITALS: BP 154/80; RESP 18; TEMP 97; BMI 18.3
[2024-03-20 18:40] VITALS: PULSE 101
== END 2024-03-20 20:04 | disposition home or self-care (01) ==
LOC: JER 18:02
DX: R07.89 Other chest pain (principal)
CPT/HCPCS: 99283-25; 99284-25

== ENCOUNTER 2024-03-23 00:23 | Emergency (ER) | payer OTHER ==
[2024-03-23 00:36] VITALS: BP 149/94; PULSE 84; RESP 18; TEMP 97.3; BMI 17.6
[2024-03-23] MEDS ORDERED: ACETAMINOPHEN 500 MG TABLET (FP) ONE (00:49)
[2024-03-23] MEDS: ACETAMINOPHEN 500 MG TABLET (FP) PO ONE (00:52)
== END 2024-03-23 08:12 | disposition home or self-care (01) ==
LOC: JER 00:23
DX: F11.10 Opioid abuse, uncomplicated (principal)
CPT/HCPCS: 99283-25

== ENCOUNTER 2024-03-28 00:39 | Emergency (ER) | payer OTHER ==
[2024-03-28 00:51] VITALS: BP 190/95; PULSE 85; RESP 16; TEMP 97.8; BMI 22.7
== END 2024-03-28 02:49 | disposition home or self-care (01) ==
LOC: JER 00:39
DX: Z76.0 Encounter for issue of repeat prescription (principal)
CPT/HCPCS: 99283-25

== ENCOUNTER 2024-03-28 22:02 | Emergency (ER) | payer OTHER ==
[2024-03-28 22:16] VITALS: RESP 18; TEMP 98.4; BMI 18.3
[2024-03-28 23:14] LABS: BASO % 0.9 % (0-2.0); EOS % 3.8 % (0-4.5); HEMATOCRIT 34.4 % (35.4-49); HEMOGLOBIN 11.5 GM/dL (11.7-16.9); LYMPH % 27.5 % (8-40); MCH 29.8 pg (25.7-33.7); MCHC 33.3 g/dl (32.0-35.9); MEAN CELL VOLUME 89.5 fl (80-96); MEAN PLT VOLUME 6.9 fl (7.5-11.1); MONO % 11.5 % (3.8-10.2); NEUT % 56.3 % (42.8-82.8); PLATELET COUNT 349 10^3/uL (134-434); RBC 3.84 M/mm3 (4.00-5.60); RDW 15.4 % (11.9-15.9)
[2024-03-28 23:32] LABS: INR 0.94 (0.83-1.09); POTASSIUM 3.8 mmol/L (3.5-5.1); PROTHROMBIN TIME (PATIENT) 10.8 SEC (9.7-13.0)
[2024-03-28 23:34] LABS: ACTIVATED PTT 28.4 SECONDS (25.2-36.5); CALCIUM 9.2 mg/dL (8.5-10.1)
[2024-03-28 23:35] LABS: ALBUMIN 3.9 g/dl (3.4-5.0); BLOOD UREA NITROGEN 12.7 mg/dL (7-18)
[2024-03-28 23:39] LABS: CREATININE 0.9 mg/dL (0.55-1.3)
[2024-03-28 23:40] LABS: BILIRUBIN,TOTAL 0.4 mg/dL (0.2-1)
[2024-03-29] MEDS ORDERED: hydrOXYzine PAMOATE 25 MG CAPSULE (FP) PO ONE (00:33)
[2024-03-29] MEDS: hydrOXYzine PAMOATE 25 MG CAPSULE (FP) PO ONE (00:39)
[2024-03-29] MEDS ORDERED: QUEtiapine FUMARATE 100 MG TABLET (FP) ONE (00:41)
[2024-03-29] MEDS: QUEtiapine FUMARATE 300 MG TABLET PO ONE (00:43)
[2024-03-29 00:44] VITALS: BP 162/78; PULSE 74
== END 2024-03-29 00:44 | disposition home or self-care (01) ==
LOC: JER 22:02
DX: R06.02 Shortness of breath (principal); R07.9 Chest pain, unspecified
CPT/HCPCS: 36415; 71045-TC-FY; 80053; 84484; 85025; 85379; 85610; 85730; 93005; 93010; 99285-25

== ENCOUNTER 2024-04-11 00:19 | Emergency (ER) | payer OTHER ==
[2024-04-11 00:29] VITALS: BP 153/72; PULSE 88; RESP 16; TEMP 97.8; BMI 21.9
== END 2024-04-11 01:53 | disposition home or self-care (01) ==
LOC: JER 00:19
DX: R07.2 Precordial pain (principal)
CPT/HCPCS: 93005; 93010; 99284-25

== ENCOUNTER 2024-04-11 19:25 | Emergency (ER) | payer OTHER ==
[2024-04-11 20:15] VITALS: BP 165/94; PULSE 102; RESP 18; TEMP 97.5; BMI 18.3
== END 2024-04-11 20:48 | disposition home or self-care (01) ==
LOC: JER 19:25
DX: R07.9 Chest pain, unspecified (principal); Z76.0 Encounter for issue of repeat prescription
CPT/HCPCS: 93005; 93010; 99284-25

== ENCOUNTER 2024-04-12 18:16 | Emergency (ER) | payer OTHER ==
[2024-04-12 18:32] VITALS: BP 124/78; PULSE 89; RESP 16; TEMP 98.3; BMI 32.3
== END 2024-04-12 19:19 | disposition home or self-care (01) ==
LOC: JERFT 18:16
DX: Z76.0 Encounter for issue of repeat prescription (principal)
CPT/HCPCS: 99281-25

== ENCOUNTER 2024-04-16 19:01 | Emergency (ER) | payer OTHER ==
[2024-04-16 19:29] VITALS: BP 154/88; PULSE 98; RESP 18; TEMP 98.6
[2024-04-16 21:33] LABS: BASO % 0.8 % (0-2.0); EOS % 3.8 % (0-4.5); HEMATOCRIT 32.6 % (35.4-49); HEMOGLOBIN 10.9 GM/dL (11.7-16.9); LYMPH % 31.2 % (8-40); MCH 30.3 pg (25.7-33.7); MCHC 33.3 g/dl (32.0-35.9); MEAN CELL VOLUME 90.8 fl (80-96); MONO % 9.1 % (3.8-10.2); NEUT % 55.1 % (42.8-82.8); PLATELET COUNT 301 10^3/uL (134-434); RBC 3.59 M/mm3 (4.00-5.60); RDW 15.9 % (11.9-15.9); WHITE BLOOD COUNT 8.5 K/mm3 (4.0-10.0)
[2024-04-16 21:56] LABS: POTASSIUM 3.7 mmol/L (3.5-5.1)
[2024-04-16 21:57] LABS: CALCIUM 8.9 mg/dL (8.5-10.1)
[2024-04-16 21:58] LABS: ALBUMIN 3.7 g/dl (3.4-5.0); BLOOD UREA NITROGEN 14.1 mg/dL (7-18)
[2024-04-16 22:03] LABS: BILIRUBIN,TOTAL 0.2 mg/dL (0.2-1); TOT PROT 6.6 g/dl (6.4-8.2)
[2024-04-17] MEDS ORDERED: ALBUTEROL SO4 HFA INHALER IH ONE (01:18)
[2024-04-17] MEDS: ALBUTEROL SO4 HFA INHALER IH ONE (01:27)
== END 2024-04-17 01:27 | disposition home or self-care (01) ==
LOC: JER 19:01
DX: R07.9 Chest pain, unspecified (principal); R06.02 Shortness of breath
CPT/HCPCS: 36415; 71045-TC-FY; 80053; 83735; 84484; 85025; 93005; 93010; 99285-25

== ENCOUNTER 2024-04-19 02:16 | Emergency (ER) | payer OTHER ==
[2024-04-19 02:32] VITALS: BP 153/68; PULSE 85; RESP 18; TEMP 98
== END 2024-04-19 06:49 | disposition home or self-care (01) ==
LOC: JER 02:16
DX: R07.9 Chest pain, unspecified (principal); Z76.0 Encounter for issue of repeat prescription
CPT/HCPCS: 99283-25

== ENCOUNTER 2024-04-22 06:31 | Emergency (ER) | payer OTHER ==
[2024-04-22 07:00] VITALS: BP 163/85; PULSE 77; RESP 18; TEMP 97.7; BMI 29.2
[2024-04-22] MEDS ORDERED: ACETAMINOPHEN 325 MG TABLET (FP) ONE (07:54)
[2024-04-22] MEDS ORDERED: ALBUTEROL SO4 HFA INHALER IH ONE (07:54)
[2024-04-22] MEDS: ALBUTEROL SO4 HFA INHALER IH ONE (07:58)
[2024-04-22] MEDS: ACETAMINOPHEN 325 MG TABLET (FP) PO ONE (07:58)
== END 2024-04-22 10:22 | disposition home or self-care (01) ==
LOC: JER 06:31
DX: Z76.0 Encounter for issue of repeat prescription (principal); G89.29 Other chronic pain
CPT/HCPCS: 93005; 93010; 99283-25

== ENCOUNTER 2024-04-23 20:59 | Emergency (ER) | payer OTHER ==
[2024-04-23 21:05] VITALS: BP 119/73; PULSE 77; RESP 20; TEMP 97.6; BMI 28.5
[2024-04-23] MEDS: NALOXONE HCL (KLOXXADO) 8 MG SPRAY NS ONE ×2 (21:55)
[2024-04-23 22:01] LABS: BASO % 0.6 % (0-2.0); EOS % 6.2 % (0-4.5); HEMATOCRIT 31.9 % (35.4-49); HEMOGLOBIN 10.6 GM/dL (11.7-16.9); LYMPH % 32.9 % (8-40); MCH 30.1 pg (25.7-33.7); MCHC 33.4 g/dl (32.0-35.9); MEAN CELL VOLUME 90.3 fl (80-96); MEAN PLT VOLUME 6.8 fl (7.5-11.1); MONO % 11.8 % (3.8-10.2); NEUT % 48.5 % (42.8-82.8); PLATELET COUNT 330 10^3/uL (134-434); RBC 3.53 M/mm3 (4.00-5.60); RDW 15.8 % (11.9-15.9); WHITE BLOOD COUNT 6.5 K/mm3 (4.0-10.0)
[2024-04-23 22:19] LABS: CHLORIDE 110 mmol/L (98-107); POTASSIUM 4.1 mmol/L (3.5-5.1); SODIUM 142 mmol/L (136-145)
[2024-04-23 22:21] LABS: ALBUMIN 3.6 g/dl (3.4-5.0); ANION GAP 3 mmol/L (4-13); BLOOD UREA NITROGEN 22.6 mg/dL (7-18); CO2 29 mmol/L (21-32); GLUCOSE,RANDOM 114 mg/dL (74-106)
[2024-04-23 22:24] LABS: CREATININE 1.5 mg/dL (0.55-1.3); SGOT/AST 16 U/L (15-37); SGPT/ALT 18 U/L (13-61)
[2024-04-23 22:26] LABS: TOT PROT 6.6 g/dl (6.4-8.2)
[2024-04-23 22:27] LABS: ALK PHOS 72 U/L (45-117)
[2024-04-23 22:30] LABS: BILIRUBIN,TOTAL 0.2 mg/dL (0.2-1)
== END 2024-04-23 23:49 | disposition home or self-care (01) ==
LOC: JER 20:59
DX: R07.9 Chest pain, unspecified (principal); R00.2 Palpitations
CPT/HCPCS: 36415; 80053; 80307; 84484; 85025; 93005; 93010; 99284-25

== ENCOUNTER 2024-04-29 09:02 | Emergency (ER) | payer OTHER ==
[2024-04-29 09:10] VITALS: BMI 24.0
[2024-04-29] MEDS ORDERED: clonazePAM 0.5 MG TABLET ONE (09:56)
[2024-04-29] MEDS: clonazePAM 0.5 MG TABLET PO ONE (10:00)
[2024-04-29 12:18] VITALS: BP 134/82; PULSE 79; RESP 18; TEMP 97.5
== END 2024-04-29 14:25 | disposition home or self-care (01) ==
LOC: JER 09:02
DX: M79.10 Myalgia, unspecified site (principal); G89.29 Other chronic pain; Z76.0 Encounter for issue of repeat prescription
CPT/HCPCS: 82962; 93005; 93010; 99284-25

== ENCOUNTER 2024-04-29 19:00 | Emergency (ER) | payer OTHER ==
[2024-04-29 19:07] VITALS: TEMP 97.2
[2024-04-29 20:57] LABS: BASO % 0.7 % (0-2.0); EOS % 2.5 % (0-4.5); HEMATOCRIT 32.3 % (35.4-49); HEMOGLOBIN 10.8 GM/dL (11.7-16.9); LYMPH % 18.3 % (8-40); MCH 30.1 pg (25.7-33.7); MCHC 33.4 g/dl (32.0-35.9); MEAN CELL VOLUME 90.3 fl (80-96); MEAN PLT VOLUME 7.2 fl (7.5-11.1); NEUT % 70.5 % (42.8-82.8); PLATELET COUNT 323 10^3/uL (134-434); RBC 3.57 M/mm3 (4.00-5.60); RDW 15.4 % (11.9-15.9); WHITE BLOOD COUNT 9.1 K/mm3 (4.0-10.0)
[2024-04-29 21:17] LABS: POTASSIUM 4.2 mmol/L (3.5-5.1)
[2024-04-29 21:18] LABS: CALCIUM 9.2 mg/dL (8.5-10.1)
[2024-04-29 21:19] LABS: ALBUMIN 3.9 g/dl (3.4-5.0); BLOOD UREA NITROGEN 14.3 mg/dL (7-18)
[2024-04-29 21:22] LABS: CREATININE 1.1 mg/dL (0.55-1.3)
[2024-04-29 21:24] LABS: BILIRUBIN,TOTAL 0.2 mg/dL (0.2-1); TOT PROT 6.9 g/dl (6.4-8.2)
[2024-04-29] MEDS ORDERED: clonazePAM 0.5 MG TABLET ONE (22:01)
[2024-04-29] MEDS: clonazePAM 0.5 MG TABLET PO ONE (22:04)
[2024-04-29 22:43] VITALS: BP 141/84; PULSE 81; RESP 18
== END 2024-04-29 23:33 | disposition home or self-care (01) ==
LOC: JER 19:00
DX: R07.9 Chest pain, unspecified (principal)
CPT/HCPCS: 36415; 71046-TC-FY; 80053; 84484; 85025; 93005; 93010; 99285-25

== ENCOUNTER 2024-05-01 01:46 | Emergency (ER) | payer OTHER ==
[2024-05-01 02:01] VITALS: BP 144/74; PULSE 78; RESP 20; TEMP 98; BMI 20.5
== END 2024-05-01 06:47 | disposition home or self-care (01) ==
LOC: JER 01:46
DX: R07.2 Precordial pain (principal); G89.29 Other chronic pain
CPT/HCPCS: 93005; 93010; 99284-25

== ENCOUNTER 2024-05-01 10:33 | Emergency (ER) | payer OTHER ==
[2024-05-01 10:41] VITALS: BP 156/76; PULSE 76; RESP 18; TEMP 97; BMI 18.3
== END 2024-05-01 13:44 | disposition home or self-care (01) ==
LOC: JER 10:33
DX: Z76.0 Encounter for issue of repeat prescription (principal)
CPT/HCPCS: 99281-25

== ENCOUNTER 2024-05-11 15:56 | Emergency (ER) | payer OTHER ==
[2024-05-11 16:23] VITALS: BP 157/85; PULSE 88; RESP 17; TEMP 98.1; BMI 24.3
== END 2024-05-11 21:36 | disposition home or self-care (01) ==
LOC: JERFT 15:56
DX: Z76.0 Encounter for issue of repeat prescription (principal)
CPT/HCPCS: 99281-25

== ENCOUNTER 2024-05-13 22:52 | Emergency (ER) | payer OTHER ==
[2024-05-13 23:02] VITALS: BP 144/84; PULSE 78; RESP 18; TEMP 98; BMI 20.7
[2024-05-14] MEDS ORDERED: ALBUTEROL SO4 HFA INHALER IH ONE (00:02)
[2024-05-14] MEDS: BACITRACIN ZINC 15 GM TUBE TOPICAL OINTMENT TP ONE (00:06)
[2024-05-14] MEDS: ALBUTEROL SO4 HFA INHALER IH ONE (00:11)
[2024-05-14] MEDS ORDERED: clonazePAM 0.5 MG TABLET ONE (00:19)
[2024-05-14] MEDS: clonazePAM 0.5 MG TABLET PO ONE (00:40)
== END 2024-05-14 00:41 | disposition home or self-care (01) ==
LOC: JER 22:52
DX: T23.221A Burn of second degree of single right finger (nail) except thumb, initial encounter (principal); X58.XXXA Exposure to other specified factors, initial encounter; Z76.0 Encounter for issue of repeat prescription
CPT/HCPCS: 93005; 93010; 99283-25

== ENCOUNTER 2024-05-28 22:42 | Emergency (ER) | payer OTHER ==
[2024-05-28 22:48] VITALS: BP 123/60; PULSE 82; RESP 17; TEMP 98.3; BMI 18.6
== END 2024-05-29 00:34 | disposition home or self-care (01) ==
LOC: JER 22:42
DX: R07.9 Chest pain, unspecified (principal); Z76.0 Encounter for issue of repeat prescription
CPT/HCPCS: 93005; 93010; 99283-25

== ENCOUNTER 2024-06-05 00:26 | Emergency (ER) | payer OTHER ==
[2024-06-05 00:38] VITALS: BP 176/98; PULSE 79; RESP 18; TEMP 98.1; BMI 18.2
[2024-06-05] MEDS ORDERED: diphenhydrAMINE HCL 25 MG CAPSULE (FP) PO ONE (02:07)
[2024-06-05] MEDS: diphenhydrAMINE HCL 25 MG CAPSULE (FP) PO ONE (02:09)
== END 2024-06-05 03:25 | disposition home or self-care (01) ==
LOC: JER 00:26
DX: R21 Rash and other nonspecific skin eruption (principal)
CPT/HCPCS: 93005; 93010; 99283-25

== ENCOUNTER 2024-06-16 16:43 | Emergency (ER) | payer OTHER ==
[2024-06-16 17:10] VITALS: BP 168/75; PULSE 69; RESP 17; TEMP 98.1; BMI 24.3
[2024-06-16 22:04] LABS: HIV INTERPRETATION NEGATIVE (NEGATIVE)
== END 2024-06-16 23:49 | disposition home or self-care (01) ==
LOC: JER 16:43
DX: R07.9 Chest pain, unspecified (principal); G89.4 Chronic pain syndrome; L29.9 Pruritus, unspecified; M79.10 Myalgia, unspecified site
CPT/HCPCS: 36415; 86803; 87389; 93005; 93010; 99284-25

== ENCOUNTER 2024-06-18 15:19 | Emergency (ER) | payer OTHER ==
[2024-06-18 15:35] VITALS: BP 168/80; PULSE 88; RESP 16; TEMP 98.1; BMI 19.8
[2024-06-18] MEDS ORDERED: diphenhydrAMINE HCL 25 MG CAPSULE (FP) PO ONE (17:40)
[2024-06-18] MEDS ORDERED: ACETAMINOPHEN 325 MG TABLET (FP) ONE (17:40)
[2024-06-18] MEDS: ACETAMINOPHEN 325 MG TABLET (FP) PO ONE (17:44)
[2024-06-18] MEDS: diphenhydrAMINE HCL 25 MG CAPSULE (FP) PO ONE (17:44)
== END 2024-06-18 19:00 | disposition home or self-care (01) ==
LOC: JER 15:19
DX: M54.50 Low back pain, unspecified (principal); G89.29 Other chronic pain; L29.9 Pruritus, unspecified; R07.9 Chest pain, unspecified
CPT/HCPCS: 93005; 93010; 99283-25

== ENCOUNTER 2024-06-24 01:11 | Emergency (ER) | payer OTHER ==
[2024-06-24 01:22] VITALS: BP 134/82; TEMP 97.5; BMI 21.9
[2024-06-24 02:32] LABS: BASO % 0.5 % (0-2.0); EOS % 3.1 % (0-4.5); HEMATOCRIT 35.8 % (35.4-49); HEMOGLOBIN 11.8 GM/dL (11.7-16.9); LYMPH % 13.2 % (8-40); MCH 28.8 pg (25.7-33.7); MCHC 32.9 g/dl (32.0-35.9); MEAN CELL VOLUME 87.7 fl (80-96); MEAN PLT VOLUME 6.8 fl (7.5-11.1); MONO % 12.4 % (3.8-10.2); NEUT % 70.8 % (42.8-82.8); PLATELET COUNT 308 10^3/uL (134-434); RBC 4.09 M/mm3 (4.00-5.60); RDW 14.9 % (11.9-15.9); WHITE BLOOD COUNT 9.6 K/mm3 (4.0-10.0)
[2024-06-24 02:59] LABS: POTASSIUM 4.5 mmol/L (3.5-5.1)
[2024-06-24 03:01] LABS: CALCIUM 9.4 mg/dL (8.5-10.1)
[2024-06-24 03:02] LABS: BLOOD UREA NITROGEN 31.5 mg/dL (7-18)
[2024-06-24 03:05] LABS: CREATININE 1.6 mg/dL (0.55-1.3)
[2024-06-24 03:06] LABS: BILIRUBIN,TOTAL 0.2 mg/dL (0.2-1)
[2024-06-24 03:07] LABS: TOT PROT 7.2 g/dl (6.4-8.2)
[2024-06-24 05:58] VITALS: PULSE 90; RESP 18
== END 2024-06-24 05:58 | disposition home or self-care (01) ==
LOC: JER 01:11
DX: R07.2 Precordial pain (principal)
CPT/HCPCS: 36415; 80053; 84484; 85025; 93005; 93010; 99284-25

== ENCOUNTER 2024-07-05 19:52 | Emergency (ER) | payer OTHER ==
[2024-07-05 20:00] VITALS: BP 133/83; PULSE 86; RESP 18; TEMP 98.5; BMI 19.8
[2024-07-05] MEDS ORDERED: hydrOXYzine PAMOATE 25 MG CAPSULE (FP) PO ONE (22:31)
[2024-07-05] MEDS: hydrOXYzine PAMOATE 50 MG CAPSULE (FP) PO ONE (22:36)
== END 2024-07-05 23:06 | disposition home or self-care (01) ==
LOC: JER 19:52
DX: L29.9 Pruritus, unspecified (principal)
CPT/HCPCS: 99283-25